=== PATIENT | male | born 1960 | race Caucasian/White ===

== ENCOUNTER 2016-11-18 23:50 | Emergency (ER) | payer OTHER ==
[~2016-11-18] VITALS: Ht 185.4 cm; Wt 161.4 kg
[~2016-11-18 23:50] MED LIST: ACID CONTROL150 MG PO; ADULT LOW DOSE81 M1 PO; AEROECLIPSE1 EACH MC; ALLEGRA30 MG PO; AMLODIPINE BESY10 MG PO; AMOX TR-K CLV1 EAC3 PO; ANUSOL-HC21 GM PR; AQUAPHOR OINTM105 GM TP; ASPIR 8181 M1 PO; ASPIR-LOW81 MG PO; ASPIRIN81 M2 PO; ATIVAN0.5 MG PO; ATORVASTATIN CA40 MG PO; AUGMENTIN875 MG PO; Ascorbic Acid,Ester- PO; BACTROBAN CREAM15 GM TP; BENTYL10 MG PO; BENTYL20 MG PO; CALAMINE LOTIO120 ML TP; CARDIZEM60 MG PO; CELEXA40 MG PO; CHLORASEPTIC177 ML MM; CITALOPRAM HBR40 M1 PO; DILAUDID2 MG PO; DILAUDID4 MG PO; DOCUSATE SODIU100 MG PO; DOXYCYCLINE HY100 MG PO; DULCOLAX5 MG PO; ELIQUIS5 MG PO; EX-LAX15 MG PO; EXCEDRIN MIGRA1 EAC3 PO; FLANDERS BUTTO113 GM TD; FLEXERIL10 MG PO; FLONASE16 G1 BOTH NARES; GAS-X80 MG PO; GEMFIBROZIL600 MG PO; GENTAMICIN40 MG/1 ML IV; GLIPIZIDE ER2.5 M1 PO; HUMALOG100 UNIT/2 SQ; HYDROCODON-ACE1 EAC7 PO; KEFLEX500 MG PO; LABETALOL HCL200 MG PO; LABETALOL HCL300 MG PO; LACTULOSE10 GM/151 PO; LANTUS 10100 UNITS/ SC; LANTUS 3 M100 UNITS/ SC; LANTUS 3 M100 UNITS1 SC; LANTUS 3 M100 UNITS1 SQ; LANTUS100 UNIT/1 SQ; LASIX40 MG PO; LASIX80 MG PO; LIDOCAINE20 MG/1 M5 PO; LIDODERM 5% P1 PATCH TD; LISINOPRIL40 MG PO; LO-DOSE ASPIRIN81 M1 PO; LOMOTIL TABLET1 EACH PO; LOPID600 MG PO; LORAZEPAM0.5 MG PO; LOTRISONE15 GM TP; LYRICA150 MG PO; LYRICA300 MG PO; MAALOX ADVANCE355 ML PO; MAGIC MOUTHWASH1 ML MM; MAGNESIUM CITR296 M1 PO; MAXALT10 MG PO; METAMUCIL FIBE3.4 GM PO; METOPROLOL SUCC25 MG PO; METOPROLOL TAR100 MG PO; MIRALAX17 GM PO; MIRALAX255 GM PO; MUPIROCIN22 GM TP; Mitrazol 2% Cream TP; NEXIUM40 MG PO; NORCO 5/3251 TABLET PO; NORTRIPTYLINE H10 MG PO; NORVASC10 MG PO; NOVOLOG 10100 UNITS/ SC; NOVOLOG PE100 UNITS/ SC; NOVOLOG100 UNIT/1 SC; NYAMYC60 GM TP; NYSTATIN100000 UN1 PO; ONDANSETRON HCL4 MG PO; OXYCODONE HCL30 MG PO; PAMELOR25 MG PO; PANTOPRAZOLE SO40 MG PO; PEN-VEE K,VEET500 MG PO; PEPCID20 MG PO; PREDNISONE50 MG PO; PRILOSEC20 MG PO; PROAIR HFA8.5 GM IH; PROMETHAZINE HC25 M1 PO; PROTONIX40 MG PO; PROVENTIL,2.5 MG/3 M IH; RANITIDINE HCL150 M1 PO; RANITIDINE HCL150 MG PO; REGLAN5 MG PO; RENA-VITE RX T1 EACH PO; RENAL CAPS SOFTG1 MG PO; RENVELA800 MG PO; ROBITUSSIN AC,T10 ML PO; ROBITUSSIN100 MG/5 M PO; ROXICODONE30 MG PO; SENOKOT S,PE1 TABLET PO; SENOKOT,SENN1 TABLET PO; SIMETHICONE125 M1 PO; SODIUM CHLORIDE IH; TESSALON200 MG PO; THERAGRAN1 TABLET PO; TOPAMAX100 MG PO; TOPAMAX200 MG PO; TOPIRAMATE200 MG PO; TORADOL10 MG PO; TRAMADOL HCL50 MG PO; TUMS X-STR300 MG PO; TYLENOL EXTRA500 MG PO; Tylenol Regular Stre PO; ULTRAM50 MG PO; VALIUM5 MG PO; VANCOMYCIN HCL1 GM IV; VENTOLIN HFA18 GM IH; VIBRAMYCIN100 MG PO; ZANTAC150 MG PO; ZANTAC300 MG PO; ZESTRIL,PRINIVIL5 MG PO; ZITHROMAX Z-PA250 MG PO; ZOFRAN ODT4 MG PO; ZOFRAN ODT8 MG PO; ZOFRAN4 MG PO; ZOFRAN8 MG PO; [UNRECOGNIZED DRUG - OTHER] PO; [UNRECOGNIZED DRUG - OTHER] TP
[2016-11-19] MEDS ORDERED: ZYRTEC10 M3 PO (01:38)
[2016-11-19] MEDS ORDERED: ROBITUSSIN AC,T10 ML PO (01:38)
[2016-11-19 01:51] VITALS: BP 150/73
== END 2016-11-19 01:54 | disposition home or self-care (01) ==
LOC: EME 23:50
DX: J06.9 Acute upper respiratory infection, unspecified (principal); J40 Bronchitis, not specified as acute or chronic; N18.6 End stage renal disease; I25.2 Old myocardial infarction; Z99.81 Dependence on supplemental oxygen; Z87.442 Personal history of urinary calculi; Z99.2 Dependence on renal dialysis; Z91.041 Radiographic dye allergy status; Z88.1 Allergy status to other antibiotic agents; Z87.891 Personal history of nicotine dependence
CPT/HCPCS: 71010; 99281; 99283

== ENCOUNTER 2016-11-22 02:42 | Emergency (ER) | payer OTHER ==
[~2016-11-22] VITALS: Ht 185.4 cm; Wt 162.8 kg
[~2016-11-22 02:42] MED LIST changes: +ZYRTEC10 M3 PO
[2016-11-22 04:08] LABS: HEMATOCRIT 32.1 % (38.0-50.0); MCV 82.9 FL (86-99); PLATELET COUNT 199 K/uL (156-360); RBC DIS.WIDTH-CV 17.2 % (11.8-14.6); RBC DIS.WIDTH-SD 49.8 % (39-53); RED BLOOD COUNT 3.87 M/uL (4.00-5.50); WHITE BLOOD COUNT 8.8 K/uL (4.1-10.2)
[2016-11-22 04:19] LABS: CHLORIDE 95 mEq/L (99-109); POTASSIUM 4.7 mEq/L (3.7-5.4); SODIUM 132 mEq/L (136-147)
[2016-11-22 04:21] LABS: GLUCOSE 340 mg/dL (70-99)
[2016-11-22 04:22] LABS: ANION GAP 17 MEQ/L (2-14)
[2016-11-22 04:23] LABS: TOTAL BILIRUBIN 0.4 mg/dL (0.0-1.0)
[2016-11-22 04:25] LABS: ALKALINE PHOSPHATASE 123 IU/L (3-129); GFR ESTIMATE (CALCULATED) 11 mL/min/
[2016-11-22 04:26] LABS: DIRECT BILIRUBIN 0.1 mg/dL (0.0-0.3); UREA NITROGEN (BUN) 66 mg/dL (9-23)
[2016-11-22 05:40] VITALS: BP 150/65
== END 2016-11-22 05:57 | disposition home or self-care (01) ==
LOC: EME 02:42
PROVIDERS: Emergency Medicine
DX: E86.0 Dehydration (principal); E11.65 Type 2 diabetes mellitus with hyperglycemia; E11.29 Type 2 diabetes mellitus with other diabetic kidney complication; I10 Essential (primary) hypertension; J43.9 Emphysema, unspecified; J44.9 Chronic obstructive pulmonary disease, unspecified; J45.909 Unspecified asthma, uncomplicated; Z99.2 Dependence on renal dialysis; Z79.4 Long term (current) use of insulin; Z79.82 Long term (current) use of aspirin; Z87.891 Personal history of nicotine dependence; Z91.041 Radiographic dye allergy status; Z88.8 Allergy status to other drugs, medicaments and biological substances; Z88.4 Allergy status to anesthetic agent
CPT/HCPCS: 71010; 80048; 80076; 83605; 85027; 99281; 99284; J7040

== ENCOUNTER 2016-12-06 10:43 | Emergency (ER) | payer OTHER ==
[~2016-12-06] VITALS: Ht 185.4 cm; Wt 155.0 kg
[2016-12-06] MEDS ORDERED: LABETALOL HCL200 MG PO (11:43)
[2016-12-06 13:31] VITALS: BP 195/97
== END 2016-12-06 13:32 | disposition home or self-care (01) ==
LOC: EME 10:43
DX: R11.0 Nausea (principal); R10.10 Upper abdominal pain, unspecified; E11.9 Type 2 diabetes mellitus without complications; I10 Essential (primary) hypertension; I25.2 Old myocardial infarction; K21.9 Gastro-esophageal reflux disease without esophagitis; Z87.442 Personal history of urinary calculi; Z89.612 Acquired absence of left leg above knee; Z89.611 Acquired absence of right leg above knee; Z99.81 Dependence on supplemental oxygen; Z91.041 Radiographic dye allergy status; Z88.8 Allergy status to other drugs, medicaments and biological substances; Z87.891 Personal history of nicotine dependence
CPT/HCPCS: 80053; 81003; 85027; 99281; 99284; J2405; J2550

== ENCOUNTER 2016-12-24 21:16 | Emergency (ER) | payer OTHER ==
[~2016-12-24] VITALS: Ht 154.9 cm; Wt 159.0 kg
[2016-12-24 22:42] LABS: CARBOXY HGB 1.2 % (0-5); METHEMOGLOBIN 1.5 % (0-1.5); PCO2 52 mm Hg (35-45)
[2016-12-24 22:49] LABS: BICARBONATE 27.4 mEq/L (22-26); COMMENTS - BLOOD GASES C+A+ VBG; DEVICE NC; O2 FLOW 4 L/MIN; PO2 39 mm Hg (80-100); SITE RR; pH 7.33 (7.35-7.45)
[2016-12-24 22:49] LABS: CHLORIDE 99 mEq/L (99-109); POTASSIUM 3.2 mEq/L (3.7-5.4); SODIUM 137 mEq/L (136-147)
[2016-12-24 22:51] LABS: GLUCOSE 161 mg/dL (70-99)
[2016-12-24 22:52] LABS: ANION GAP 15 MEQ/L (2-14)
[2016-12-24 22:53] LABS: TOTAL BILIRUBIN 0.3 mg/dL (0.0-1.0)
[2016-12-24 22:54] LABS: ALKALINE PHOSPHATASE 98 IU/L (3-129)
[2016-12-24 22:55] LABS: GFR ESTIMATE (CALCULATED) 13 mL/min/
[2016-12-24 22:56] LABS: UREA NITROGEN (BUN) 26 mg/dL (9-23)
[2016-12-24 22:57] LABS: HEMATOCRIT 29.4 % (38.0-50.0); MCH 23.8 PG (29.0-34.0); MCHC 28.9 G/DL (30.0-36.0); MCV 82.4 FL (86-99); MEAN PLAT.VOLUME 8.5 uM^3 (9.0-12.4); PLATELET COUNT 260 K/uL (156-360); RBC DIS.WIDTH-CV 17.1 % (11.8-14.6); RBC DIS.WIDTH-SD 49.3 % (39-53); RED BLOOD COUNT 3.57 M/uL (4.00-5.50); WHITE BLOOD COUNT 8.1 K/uL (4.1-10.2)
[2016-12-24 22:58] LABS: LIPASE 20 U/L (1.0-51.0)
[2016-12-24 23:00] LABS: TROP-I INTERPRETATION NEGATIVE; TROPONIN-I 0.02 ng/mL (0.0-0.30)
[2016-12-24 23:08] LABS: INTER. NORMALIZED RATIO 1.1; PROTHROMBIN TIME 11.2 (9.2-11.2); PTT 34.3 (25-32)
[2016-12-25] MEDS ORDERED: ATIVAN0.5 MG PO (01:20)
[2016-12-25 01:50] VITALS: BP 103/60
== END 2016-12-25 02:06 | disposition home or self-care (01) ==
LOC: EME 21:16
PROVIDERS: Emergency Medicine
DX: F41.1 Generalized anxiety disorder (principal); R06.00 Dyspnea, unspecified; E11.22 Type 2 diabetes mellitus with diabetic chronic kidney disease; I12.0 Hypertensive chronic kidney disease with stage 5 chronic kidney disease or end stage renal disease; N18.6 End stage renal disease; Z99.2 Dependence on renal dialysis; Z79.4 Long term (current) use of insulin; D64.9 Anemia, unspecified; J44.9 Chronic obstructive pulmonary disease, unspecified; J45.909 Unspecified asthma, uncomplicated; G89.29 Other chronic pain; Z79.891 Long term (current) use of opiate analgesic; Z79.82 Long term (current) use of aspirin; Z99.81 Dependence on supplemental oxygen; Z89.611 Acquired absence of right leg above knee; Z89.612 Acquired absence of left leg above knee; Z87.891 Personal history of nicotine dependence
CPT/HCPCS: 36600; 71010; 80053; 81003; 82803; 83690; 83880; 84484; 85027; 85610; 85730; 93005; 94640; 94799; 99281; 99285; J2060

== ENCOUNTER 2016-12-29 21:49 | Emergency (ER) | payer OTHER ==
[~2016-12-29] VITALS: Ht 185.4 cm; Wt 159.0 kg
[2016-12-30 00:54] LABS: HEMATOCRIT 29.7 % (38.0-50.0); MCH 23.8 PG (29.0-34.0); MCV 82.3 FL (86-99); MEAN PLAT.VOLUME 8.3 uM^3 (9.0-12.4); PLATELET COUNT 257 K/uL (156-360); RBC DIS.WIDTH-CV 17.4 % (11.8-14.6); RBC DIS.WIDTH-SD 50.6 % (39-53); RED BLOOD COUNT 3.61 M/uL (4.00-5.50); WHITE BLOOD COUNT 9.3 K/uL (4.1-10.2)
[2016-12-30 00:56] LABS: EOSINOPHIL (%) 5.2 % (0-5); EOSINOPHIL COUNT 0.5 K/uL (0-0.3); IMMATURE GRANULOCYTE (%) 0.6 % (0.0-0.7); IMMATURE GRANULOCYTE COUNT 0.6 K/uL; MONOCYTE (%) 9.6 % (3-12); MONOCYTE COUNT 0.9 K/uL (0-0.8); NEUTROPHIL (%) 73.7 % (45-76); NEUTROPHIL COUNT 6.9 K/uL (1.8-6.4)
[2016-12-30 01:02] LABS: CHLORIDE 98 mEq/L (99-109); POTASSIUM 3.6 mEq/L (3.7-5.4); SODIUM 136 mEq/L (136-147)
[2016-12-30 01:04] LABS: GLUCOSE 173 mg/dL (70-99)
[2016-12-30 01:05] LABS: ANION GAP 16 MEQ/L (2-14)
[2016-12-30 01:08] LABS: GFR ESTIMATE (CALCULATED) 10 mL/min/
[2016-12-30 01:09] LABS: UREA NITROGEN (BUN) 35 mg/dL (9-23)
[2016-12-30 03:22] VITALS: BP 91/58
== END 2016-12-30 03:23 | disposition home or self-care (01) ==
LOC: EME 21:49
PROVIDERS: Emergency Medicine
DX: L89.313 Pressure ulcer of right buttock, stage 3 (principal); L89.323 Pressure ulcer of left buttock, stage 3; I13.0 Hypertensive heart and chronic kidney disease with heart failure and stage 1 through stage 4 chronic kidney disease, or unspecified chronic kidney disease; I50.9 Heart failure, unspecified; E11.22 Type 2 diabetes mellitus with diabetic chronic kidney disease; N18.9 Chronic kidney disease, unspecified; D64.9 Anemia, unspecified; J44.9 Chronic obstructive pulmonary disease, unspecified; F31.9 Bipolar disorder, unspecified; Z89.611 Acquired absence of right leg above knee; Z89.612 Acquired absence of left leg above knee
CPT/HCPCS: 74177; 80048; 83605; 85025; 87040; 99281; 99285; J1170; J7030; J7050

== ENCOUNTER 2016-12-30 20:56 | Emergency (ER) | payer OTHER ==
[~2016-12-30] VITALS: Ht 185.4 cm; Wt 143.1 kg
[2016-12-30 22:03] VITALS: BP 127/58
== END 2016-12-30 22:08 | disposition home or self-care (01) ==
LOC: EME 20:56
DX: L89.319 Pressure ulcer of right buttock, unspecified stage (principal); L89.329 Pressure ulcer of left buttock, unspecified stage; G89.29 Other chronic pain; J44.9 Chronic obstructive pulmonary disease, unspecified; I10 Essential (primary) hypertension; I25.10 Atherosclerotic heart disease of native coronary artery without angina pectoris; J45.909 Unspecified asthma, uncomplicated; E11.9 Type 2 diabetes mellitus without complications; I25.2 Old myocardial infarction; Z87.442 Personal history of urinary calculi; K21.9 Gastro-esophageal reflux disease without esophagitis; R56.9 Unspecified convulsions; Z79.4 Long term (current) use of insulin; Z79.82 Long term (current) use of aspirin; Z87.891 Personal history of nicotine dependence
CPT/HCPCS: 99281; 99283

== ENCOUNTER 2017-01-05 01:04 | Emergency (ER) | payer OTHER ==
[~2017-01-05] VITALS: Ht 182.9 cm; Wt 164.4 kg
[2017-01-05 02:10] LABS: HEMATOCRIT 27.7 % (38.0-50.0); MCH 23.6 PG (29.0-34.0); MCHC 28.9 G/DL (30.0-36.0); MCV 81.7 FL (86-99); MEAN PLAT.VOLUME 8.5 uM^3 (9.0-12.4); PLATELET COUNT 215 K/uL (156-360); RBC DIS.WIDTH-CV 17.3 % (11.8-14.6); RBC DIS.WIDTH-SD 50.1 % (39-53); RED BLOOD COUNT 3.39 M/uL (4.00-5.50); WHITE BLOOD COUNT 8.9 K/uL (4.1-10.2)
[2017-01-05 02:22] LABS: CHLORIDE 97 mEq/L (99-109); POTASSIUM 3.2 mEq/L (3.7-5.4); SODIUM 135 mEq/L (136-147)
[2017-01-05 02:23] LABS: GLUCOSE 288 mg/dL (70-99)
[2017-01-05 02:25] LABS: ANION GAP 15 MEQ/L (2-14)
[2017-01-05 02:27] LABS: GFR ESTIMATE (CALCULATED) 13 mL/min/
[2017-01-05 02:28] LABS: UREA NITROGEN (BUN) 30 mg/dL (9-23)
[2017-01-05 02:31] LABS: TROP-I INTERPRETATION NEGATIVE; TROPONIN-I 0.02 ng/mL (0.0-0.30)
[2017-01-05 03:47] VITALS: BP 115/64
== END 2017-01-05 03:48 | disposition home or self-care (01) ==
LOC: EME 01:04
PROVIDERS: Emergency Medicine
DX: J44.1 Chronic obstructive pulmonary disease with (acute) exacerbation (principal); I12.9 Hypertensive chronic kidney disease with stage 1 through stage 4 chronic kidney disease, or unspecified chronic kidney disease; N18.9 Chronic kidney disease, unspecified; Z99.2 Dependence on renal dialysis; J45.909 Unspecified asthma, uncomplicated; F31.9 Bipolar disorder, unspecified; G89.29 Other chronic pain; E11.9 Type 2 diabetes mellitus without complications; I25.2 Old myocardial infarction; Z87.442 Personal history of urinary calculi; K21.9 Gastro-esophageal reflux disease without esophagitis; Z79.4 Long term (current) use of insulin; Z79.82 Long term (current) use of aspirin; Z87.891 Personal history of nicotine dependence
CPT/HCPCS: 71010; 80048; 83880; 84484; 85027; 93005; 94640; 99281; 99284

== ENCOUNTER 2017-01-11 01:55 | Emergency (ER) | payer OTHER ==
[~2017-01-11] VITALS: Ht 185.4 cm; Wt 85.0 kg
[2017-01-11 06:29] VITALS: BP 142/66
== END 2017-01-11 06:31 | disposition home or self-care (01) ==
LOC: EME 01:55
DX: S72.401A Unspecified fracture of lower end of right femur, initial encounter for closed fracture (principal); V00.818A Other accident with wheelchair (powered), initial encounter; Z89.511 Acquired absence of right leg below knee; Z89.512 Acquired absence of left leg below knee; E11.9 Type 2 diabetes mellitus without complications; J44.9 Chronic obstructive pulmonary disease, unspecified; I10 Essential (primary) hypertension; I25.2 Old myocardial infarction; K21.9 Gastro-esophageal reflux disease without esophagitis; R56.9 Unspecified convulsions; Z99.2 Dependence on renal dialysis; G89.29 Other chronic pain; Z79.891 Long term (current) use of opiate analgesic; Z79.4 Long term (current) use of insulin; Z79.82 Long term (current) use of aspirin; Z87.891 Personal history of nicotine dependence; Z99.3 Dependence on wheelchair
CPT/HCPCS: 73502; 73552; 99281; 99284

== ENCOUNTER 2017-01-15 21:19 | Emergency (ER) | payer OTHER ==
[~2017-01-15] VITALS: Ht 185.4 cm; Wt 164.0 kg
[2017-01-15 22:05] LABS: CHLORIDE 96 mEq/L (99-109); POTASSIUM 3.2 mEq/L (3.7-5.4); SODIUM 134 mEq/L (136-147)
[2017-01-15 22:06] LABS: MCH 23.3 PG (29.0-34.0); MCHC 28.1 G/DL (30.0-36.0); MCV 82.9 FL (86-99); MEAN PLAT.VOLUME 10.4 uM^3 (9.0-12.4); PLATELET COUNT 220 K/uL (156-360); RBC DIS.WIDTH-CV 16.8 % (11.8-14.6); RED BLOOD COUNT 3.86 M/uL (4.00-5.50); WHITE BLOOD COUNT 8.7 K/uL (4.1-10.2)
[2017-01-15 22:07] LABS: GLUCOSE 293 mg/dL (70-99)
[2017-01-15 22:09] LABS: ANION GAP 12 MEQ/L (2-14)
[2017-01-15 22:11] LABS: GFR ESTIMATE (CALCULATED) 17 mL/min/
[2017-01-15 22:12] LABS: UREA NITROGEN (BUN) 19 mg/dL (9-23)
[2017-01-15 23:58] LABS: MAGNESIUM 1.9 mg/dL (1.3-2.7)
[2017-01-16 00:01] LABS: TOTAL BILIRUBIN 0.3 mg/dL (0.0-1.0)
[2017-01-16 00:02] LABS: ALKALINE PHOSPHATASE 108 IU/L (3-129)
[2017-01-16 00:05] LABS: DIRECT BILIRUBIN 0.1 mg/dL (0.0-0.3)
[2017-01-16 00:21] LABS: TROP-I INTERPRETATION NEGATIVE; TROPONIN-I 0.03 ng/mL (0.0-0.30)
[2017-01-16] MEDS ORDERED: ATARAX,VISTARIL50 MG PO (01:25)
[2017-01-16 01:39] VITALS: BP 133/75
== END 2017-01-16 01:40 | disposition home or self-care (01) ==
LOC: EME 21:19
PROVIDERS: Emergency Medicine
DX: E86.0 Dehydration (principal); Z99.2 Dependence on renal dialysis; R11.0 Nausea; L29.9 Pruritus, unspecified; E11.22 Type 2 diabetes mellitus with diabetic chronic kidney disease; I12.0 Hypertensive chronic kidney disease with stage 5 chronic kidney disease or end stage renal disease; N18.6 End stage renal disease; Z79.4 Long term (current) use of insulin; J44.9 Chronic obstructive pulmonary disease, unspecified; J45.909 Unspecified asthma, uncomplicated; G89.29 Other chronic pain; Z79.891 Long term (current) use of opiate analgesic; Z79.82 Long term (current) use of aspirin; Z89.511 Acquired absence of right leg below knee; Z89.512 Acquired absence of left leg below knee; Z87.891 Personal history of nicotine dependence
CPT/HCPCS: 71010; 80048; 80076; 83735; 84100; 84484; 85027; 93005; 99281; 99284; J2550

== ENCOUNTER 2017-01-19 00:23 | Emergency (ER) | payer OTHER ==
[~2017-01-19] VITALS: Ht 185.4 cm; Wt 164.0 kg
[~2017-01-19 00:23] MED LIST changes: +ATARAX,VISTARIL50 MG PO
[2017-01-19 01:38] LABS: CHLORIDE 99 mEq/L (99-109); SODIUM 137 mEq/L (136-147)
[2017-01-19 01:40] LABS: GLUCOSE 347 mg/dL (70-99)
[2017-01-19 01:41] LABS: ANION GAP 15 MEQ/L (2-14)
[2017-01-19 01:42] LABS: TROP-I INTERPRETATION NEGATIVE; TROPONIN-I 0.03 ng/mL (0.0-0.30)
[2017-01-19 01:44] LABS: UREA NITROGEN (BUN) 27 mg/dL (9-23)
[2017-01-19 01:51] LABS: GFR ESTIMATE (CALCULATED) 13 mL/min/
[2017-01-19 02:11] LABS: MCH 23.2 PG (29.0-34.0); MCHC 28.3 G/DL (30.0-36.0); MCV 81.9 FL (86-99); MEAN PLAT.VOLUME 8.8 uM^3 (9.0-12.4); PLATELET COUNT 248 K/uL (156-360); RBC DIS.WIDTH-CV 16.3 % (11.8-14.6); RBC DIS.WIDTH-SD 48.9 % (39-53); RED BLOOD COUNT 3.54 M/uL (4.00-5.50); WHITE BLOOD COUNT 8.9 K/uL (4.1-10.2)
[2017-01-19 02:29] VITALS: BP 107/94
== END 2017-01-19 02:30 | disposition home or self-care (01) ==
LOC: EME 00:23
PROVIDERS: Emergency Medicine
DX: G47.30 Sleep apnea, unspecified (principal); J44.9 Chronic obstructive pulmonary disease, unspecified; J45.909 Unspecified asthma, uncomplicated; E11.22 Type 2 diabetes mellitus with diabetic chronic kidney disease; I12.0 Hypertensive chronic kidney disease with stage 5 chronic kidney disease or end stage renal disease; N18.6 End stage renal disease; Z99.2 Dependence on renal dialysis; Z79.4 Long term (current) use of insulin; Z89.611 Acquired absence of right leg above knee; Z89.612 Acquired absence of left leg above knee; Z79.82 Long term (current) use of aspirin; Z87.891 Personal history of nicotine dependence
CPT/HCPCS: 71020; 80048; 83880; 84484; 85027; 99281; 99284

== ENCOUNTER 2017-01-23 07:01 | Emergency (ER) | payer OTHER ==
[~2017-01-23] VITALS: Ht 185.4 cm; Wt 164.0 kg
[2017-01-23 08:47] VITALS: BP 160/63
== END 2017-01-23 08:55 | disposition home or self-care (01) ==
LOC: EME 07:01
DX: L02.31 Cutaneous abscess of buttock (principal); Z48.01 Encounter for change or removal of surgical wound dressing; L89.152 Pressure ulcer of sacral region, stage 2; E11.22 Type 2 diabetes mellitus with diabetic chronic kidney disease; I12.0 Hypertensive chronic kidney disease with stage 5 chronic kidney disease or end stage renal disease; N18.6 End stage renal disease; Z99.2 Dependence on renal dialysis; Z79.4 Long term (current) use of insulin; J44.9 Chronic obstructive pulmonary disease, unspecified; J45.909 Unspecified asthma, uncomplicated; Z89.511 Acquired absence of right leg below knee; Z89.512 Acquired absence of left leg below knee; Z79.82 Long term (current) use of aspirin; Z87.891 Personal history of nicotine dependence
CPT/HCPCS: 99281; 99285

== ENCOUNTER 2017-01-24 21:42 | Emergency (ER) | payer OTHER ==
[~2017-01-24] VITALS: Ht 185.4 cm; Wt 165.0 kg
[2017-01-25 00:10] VITALS: BP 159/64
== END 2017-01-25 00:50 | disposition home or self-care (01) ==
LOC: EME 21:42
DX: S70.12XA Contusion of left thigh, initial encounter (principal); S72.402A Unspecified fracture of lower end of left femur, initial encounter for closed fracture; E11.9 Type 2 diabetes mellitus without complications; Z89.511 Acquired absence of right leg below knee; Z89.512 Acquired absence of left leg below knee; W04.XXXA Fall while being carried or supported by other persons, initial encounter; I10 Essential (primary) hypertension; I25.2 Old myocardial infarction
CPT/HCPCS: 73552; 99281; 99283; J3010

== ENCOUNTER 2017-01-25 05:56 | Emergency (ER) | payer OTHER ==
[~2017-01-25] VITALS: Ht 185.4 cm; Wt 165.0 kg
[2017-01-25 08:18] VITALS: BP 194/71
== END 2017-01-25 08:23 | disposition home or self-care (01) ==
LOC: EME 05:56
DX: G89.21 Chronic pain due to trauma (principal); M79.605 Pain in left leg; M84.452A Pathological fracture, left femur, initial encounter for fracture; W04.XXXA Fall while being carried or supported by other persons, initial encounter; I12.0 Hypertensive chronic kidney disease with stage 5 chronic kidney disease or end stage renal disease; N18.6 End stage renal disease; E11.22 Type 2 diabetes mellitus with diabetic chronic kidney disease; Z99.2 Dependence on renal dialysis; J44.9 Chronic obstructive pulmonary disease, unspecified; J45.909 Unspecified asthma, uncomplicated; I50.9 Heart failure, unspecified; I25.2 Old myocardial infarction; K21.9 Gastro-esophageal reflux disease without esophagitis; Z89.611 Acquired absence of right leg above knee; Z89.612 Acquired absence of left leg above knee; Z79.4 Long term (current) use of insulin; Z87.891 Personal history of nicotine dependence
CPT/HCPCS: 99281; 99284; J3010

== ENCOUNTER 2017-01-25 08:27 | Day surgery (SDC) | payer OTHER ==
[~2017-01-25] VITALS: Ht 185.4 cm; Wt 170.0 kg
[2017-01-25 10:16] LABS: POINT-OF-CARE METER ID UU13113696
[2017-01-25 12:21] VITALS: BP 149/65
[2017-01-25 12:30] LABS: ANION GAP 15 MEQ/L (2-14); CHLORIDE 97 MEQ/L (99-109); GLUCOSE 341 mg/dL (70-99); SAMPLE HEMOLYSIS CHECK 0; SAMPLE ICTERIC CHECK 0; SAMPLE LIPEMIA CHECK 0; SODIUM 134 MEQ/L (136-147)
[2017-01-25 12:35] LABS: GFR ESTIMATE (CALCULATED) 8 mL/min/; POTASSIUM 6.1 MEQ/L (3.7-5.4); UREA NITROGEN (BUN) 62 mg/dL (9-23)
[2017-01-25 14:14] VITALS: BP 173/138
[2017-01-25 14:47] VITALS: BP 170/100
== END 2017-01-25 14:48 | disposition home or self-care (01) ==
LOC: SDC 08:27 → CATH 08:27 → SDC 14:48
PROVIDERS: Surgery
DX: T82.858A Stenosis of other vascular prosthetic devices, implants and grafts, initial encounter (principal); Y83.2 Surgical operation with anastomosis, bypass or graft as the cause of abnormal reaction of the patient, or of later complication, without mention of misadventure at the time of the procedure; I12.0 Hypertensive chronic kidney disease with stage 5 chronic kidney disease or end stage renal disease; N18.6 End stage renal disease; Z99.2 Dependence on renal dialysis; E11.22 Type 2 diabetes mellitus with diabetic chronic kidney disease; Z79.4 Long term (current) use of insulin; F17.200 Nicotine dependence, unspecified, uncomplicated; E66.01 Morbid (severe) obesity due to excess calories; Z68.42 Body mass index [BMI] 45.0-49.9, adult; D63.1 Anemia in chronic kidney disease; K44.9 Diaphragmatic hernia without obstruction or gangrene; J44.9 Chronic obstructive pulmonary disease, unspecified; Z99.81 Dependence on supplemental oxygen; Z79.82 Long term (current) use of aspirin; Z86.73 Personal history of transient ischemic attack (TIA), and cerebral infarction without residual deficits; Z88.8 Allergy status to other drugs, medicaments and biological substances; Z99.3 Dependence on wheelchair
CPT/HCPCS: 80048; 82948; C1725; C1769; C1894; J1644

== ENCOUNTER 2017-01-27 04:45 | Emergency (ER) | payer OTHER ==
[~2017-01-27] VITALS: Ht 185.4 cm; Wt 121.4 kg
[2017-01-27 05:35] LABS: HEMATOCRIT 28.7 % (38.0-50.0); MCH 23.3 PG (29.0-34.0); MCHC 28.2 G/DL (30.0-36.0); MCV 82.5 FL (86-99); MEAN PLAT.VOLUME 8.9 uM^3 (9.0-12.4); PLATELET COUNT 239 K/uL (156-360); RBC DIS.WIDTH-CV 16.5 % (11.8-14.6); RBC DIS.WIDTH-SD 49.1 % (39-53); RED BLOOD COUNT 3.48 M/uL (4.00-5.50); WHITE BLOOD COUNT 7.7 K/uL (4.1-10.2)
[2017-01-27 05:39] LABS: CHLORIDE 98 mEq/L (99-109); POTASSIUM 5.7 mEq/L (3.7-5.4); SODIUM 137 mEq/L (136-147)
[2017-01-27 05:42] LABS: ANION GAP 18 MEQ/L (2-14)
[2017-01-27 05:45] LABS: GFR ESTIMATE (CALCULATED) 9 mL/min/; UREA NITROGEN (BUN) 51 mg/dL (9-23)
[2017-01-27 05:52] LABS: GLUCOSE 463 mg/dL (70-99)
[2017-01-27 07:48] VITALS: BP 189/77
== END 2017-01-27 07:46 | disposition home or self-care (01) ==
LOC: EME 04:45
DX: I12.0 Hypertensive chronic kidney disease with stage 5 chronic kidney disease or end stage renal disease (principal); N18.6 End stage renal disease; J44.9 Chronic obstructive pulmonary disease, unspecified; Z99.2 Dependence on renal dialysis; J45.909 Unspecified asthma, uncomplicated; G89.29 Other chronic pain; E11.9 Type 2 diabetes mellitus without complications; Z87.442 Personal history of urinary calculi; I25.2 Old myocardial infarction; K21.9 Gastro-esophageal reflux disease without esophagitis; R56.9 Unspecified convulsions; Z79.4 Long term (current) use of insulin; Z79.82 Long term (current) use of aspirin; Z87.891 Personal history of nicotine dependence
CPT/HCPCS: 71010; 80048; 85027; 99281; 99283

== ENCOUNTER 2017-01-28 00:47 | Emergency (ER) | payer OTHER ==
[~2017-01-28] VITALS: Ht 185.4 cm; Wt 118.2 kg
[2017-01-28 00:55] VITALS: BP 157/69
== END 2017-01-28 01:30 | disposition left against medical advice (07) ==
LOC: EME 00:47
DX: R06.02 Shortness of breath (principal); Z53.21 Procedure and treatment not carried out due to patient leaving prior to being seen by health care provider; R55 Syncope and collapse; I10 Essential (primary) hypertension; Z99.2 Dependence on renal dialysis; Z87.891 Personal history of nicotine dependence

== ENCOUNTER 2017-01-28 23:00 | Emergency (ER) | payer OTHER ==
[~2017-01-28] VITALS: Ht 185.4 cm; Wt 167.0 kg
[2017-01-28 23:21] VITALS: BP 106/91
== END 2017-01-29 01:38 | disposition left against medical advice (07) ==
LOC: EME 23:00
DX: R46.89 Other symptoms and signs involving appearance and behavior (principal); Z99.2 Dependence on renal dialysis; Z53.21 Procedure and treatment not carried out due to patient leaving prior to being seen by health care provider

== ENCOUNTER 2017-01-29 02:07 | Emergency (ER) | payer OTHER ==
[~2017-01-29] VITALS: Ht 185.4 cm; Wt 172.0 kg
[2017-01-29 03:54] LABS: EOSINOPHIL (%) 5.2 % (0-5); EOSINOPHIL COUNT 0.4 K/uL (0-0.3); HEMATOCRIT 27.1 % (38.0-50.0); IMMATURE GRANULOCYTE (%) 0.7 % (0.0-0.7); IMMATURE GRANULOCYTE COUNT 0.1 K/uL; INSTRUMENT ABS NEUTROPHIL CT 6.5 K/uL; LYMPHOCYTE COUNT 0.6 K/uL (1.0-2.8); MCH 23.2 PG (29.0-34.0); MCV 82.6 FL (86-99); MONOCYTE (%) 6.7 % (3-12); MONOCYTE COUNT 0.6 K/uL (0-0.8); NEUTROPHIL (%) 79.3 % (45-76); NEUTROPHIL COUNT 6.5 K/uL (1.8-6.4); PLATELET COUNT 227 K/uL (156-360); RBC DIS.WIDTH-CV 16.5 % (11.8-14.6); RED BLOOD COUNT 3.28 M/uL (4.00-5.50); WHITE BLOOD COUNT 8.2 K/uL (4.1-10.2)
[2017-01-29 04:03] LABS: CHLORIDE 97 mEq/L (99-109); SODIUM 134 mEq/L (136-147)
[2017-01-29 04:06] LABS: ANION GAP 13 MEQ/L (2-14)
[2017-01-29 04:08] LABS: GFR ESTIMATE (CALCULATED) 10 mL/min/
[2017-01-29 04:09] LABS: UREA NITROGEN (BUN) 49 mg/dL (9-23)
[2017-01-29 04:11] LABS: GLUCOSE 468 mg/dL (70-99)
[2017-01-29 04:12] LABS: POTASSIUM 6.4 mEq/L (3.7-5.4)
[2017-01-29 04:16] LABS: TROP-I INTERPRETATION NEGATIVE; TROPONIN-I 0.01 ng/mL (0.0-0.30)
[2017-01-29 14:59] VITALS: BP 155/73
== END 2017-01-29 15:01 | disposition left against medical advice (07) ==
LOC: EME 02:07
PROVIDERS: Emergency Medicine
PROC: 5A1D00Z (ICD-10-PCS; principal; 2017-01-29)
DX: R07.9 Chest pain, unspecified (principal); R06.00 Dyspnea, unspecified; I12.0 Hypertensive chronic kidney disease with stage 5 chronic kidney disease or end stage renal disease; N18.6 End stage renal disease; Z91.15 Patient's noncompliance with renal dialysis; Z99.2 Dependence on renal dialysis; E87.5 Hyperkalemia; J45.909 Unspecified asthma, uncomplicated; J44.9 Chronic obstructive pulmonary disease, unspecified; E11.9 Type 2 diabetes mellitus without complications; I25.2 Old myocardial infarction; G89.29 Other chronic pain; Z87.442 Personal history of urinary calculi; K21.9 Gastro-esophageal reflux disease without esophagitis; Z87.891 Personal history of nicotine dependence; Z79.4 Long term (current) use of insulin; Z79.82 Long term (current) use of aspirin
CPT/HCPCS: 71010; 80048; 84484; 85025; 93005; 99281; 99285; J0610; J2060; J7050

== ENCOUNTER 2017-01-31 14:04 | Emergency (ER) | payer OTHER ==
[~2017-01-31] VITALS: Ht 185.4 cm; Wt 165.0 kg
[2017-01-31 14:50] LABS: BASOPHIL COUNT 0.1 K/uL (0-0.1); EOSINOPHIL (%) 5.3 % (0-5); EOSINOPHIL COUNT 0.4 K/uL (0-0.3); HEMATOCRIT 28.9 % (38.0-50.0); IMMATURE GRANULOCYTE (%) 0.5 % (0.0-0.7); INSTRUMENT ABS NEUTROPHIL CT 6.6 K/uL; LYMPHOCYTE COUNT 0.6 K/uL (1.0-2.8); MCH 23.1 PG (29.0-34.0); MCHC 28.4 G/DL (30.0-36.0); MCV 81.4 FL (86-99); MEAN PLAT.VOLUME 8.8 uM^3 (9.0-12.4); MONOCYTE COUNT 0.6 K/uL (0-0.8); NEUTROPHIL (%) 79.7 % (45-76); NEUTROPHIL COUNT 6.6 K/uL (1.8-6.4); PLATELET COUNT 276 K/uL (156-360); RBC DIS.WIDTH-CV 16.3 % (11.8-14.6); RBC DIS.WIDTH-SD 48.9 % (39-53); RED BLOOD COUNT 3.55 M/uL (4.00-5.50); WHITE BLOOD COUNT 8.2 K/uL (4.1-10.2)
[2017-01-31 14:59] LABS: CHLORIDE 96 mEq/L (99-109); SODIUM 132 mEq/L (136-147)
[2017-01-31 15:01] LABS: GLUCOSE 379 mg/dL (70-99)
[2017-01-31 15:02] LABS: ANION GAP 15 MEQ/L (2-14)
[2017-01-31 15:03] LABS: TOTAL BILIRUBIN 0.3 mg/dL (0.0-1.0)
[2017-01-31 15:04] LABS: ALKALINE PHOSPHATASE 90 IU/L (3-129)
[2017-01-31 15:05] LABS: GFR ESTIMATE (CALCULATED) 11 mL/min/
[2017-01-31 15:06] LABS: UREA NITROGEN (BUN) 47 mg/dL (9-23)
[2017-01-31 15:08] LABS: POTASSIUM 7.1 mEq/L (3.7-5.4)
[2017-01-31 15:12] LABS: TROP-I INTERPRETATION NEGATIVE; TROPONIN-I 0.05 ng/mL (0.0-0.30)
[2017-01-31 15:25] LABS: CARBON DIOXIDE (BICARBONATE) 28.9 MEQ/L (20-31)
[2017-01-31 15:41] LABS: ANION GAP 20 MEQ/L (2-14); CHLORIDE 95 mEq/L (99-109); CREATININE 5.5 mg/dL (0.6-1.3); GLUCOSE 353 mg/dL (70-99); ISTAT DEVICE 369301; POTASSIUM > 6.0 mEq/L (3.7-5.4); SODIUM 134 mEq/L (136-147); UREA NITROGEN (BUN) 45 mg/dL (9-23)
[2017-01-31 15:50] LABS: POTASSIUM 6.7 mEq/L (3.7-5.4)
[2017-01-31 15:53] LABS: DEVICE NC; O2 FLOW 3 L/MIN; SITE RR
[2017-01-31 15:54] LABS: BICARBONATE 28.1 mEq/L (22-26); CARBOXY HGB 0.7 % (0-5); HEMOGLOBIN 7.6 (12.5-16.6); METHEMOGLOBIN 0.6 % (0-1.5); O2 SATURATION (CALCULATED) 75.6 % (95-99); PCO2 52 mm Hg (35-45); PO2 39 mm Hg (80-100); TOTAL RESP RATE 18 resp/min; pH 7.34 (7.35-7.45)
[2017-01-31 15:55] LABS: COMMENTS - BLOOD GASES A+C+ ? VENOUS
[2017-01-31 17:31] VITALS: BP 151/91
== END 2017-01-31 17:32 | disposition left against medical advice (07) ==
LOC: EME 14:04 → EXP 14:04
PROVIDERS: Emergency Medicine; Physician Assistant
DX: E87.5 Hyperkalemia (principal); J44.9 Chronic obstructive pulmonary disease, unspecified; G47.33 Obstructive sleep apnea (adult) (pediatric); E11.9 Type 2 diabetes mellitus without complications; Z79.4 Long term (current) use of insulin; I10 Essential (primary) hypertension; Z87.891 Personal history of nicotine dependence; Z87.442 Personal history of urinary calculi
CPT/HCPCS: 36600; 71010; 80047; 80053; 82803; 83605; 84484; 84999; 85025; 85379; 93005; 99281; 99284; J0610; J2930; J7050

== ENCOUNTER 2017-02-02 04:06 | Emergency (ER) | payer OTHER ==
[~2017-02-02] VITALS: Ht 185.4 cm; Wt 166.0 kg
[2017-02-02 05:33] LABS: HEMATOCRIT 29.8 % (38.0-50.0); MCH 23.4 PG (29.0-34.0); MCHC 28.5 G/DL (30.0-36.0); MCV 81.9 FL (86-99); MEAN PLAT.VOLUME 8.4 uM^3 (9.0-12.4); PLATELET COUNT 323 K/uL (156-360); RBC DIS.WIDTH-CV 16.4 % (11.8-14.6); RED BLOOD COUNT 3.64 M/uL (4.00-5.50); WHITE BLOOD COUNT 12.4 K/uL (4.1-10.2)
[2017-02-02 05:41] LABS: CHLORIDE 97 mEq/L (99-109); SODIUM 137 mEq/L (136-147)
[2017-02-02 05:42] LABS: MAGNESIUM 2.3 mg/dL (1.3-2.7)
[2017-02-02 05:44] LABS: GLUCOSE 271 mg/dL (70-99)
[2017-02-02 05:45] LABS: ANION GAP 15 MEQ/L (2-14)
[2017-02-02 05:46] LABS: TOTAL BILIRUBIN 0.3 mg/dL (0.0-1.0)
[2017-02-02 05:47] LABS: ALKALINE PHOSPHATASE 82 IU/L (3-129)
[2017-02-02 05:48] LABS: UREA NITROGEN (BUN) 45 mg/dL (9-23)
[2017-02-02 05:51] LABS: LIPASE 48 U/L (1.0-51.0); TROP-I INTERPRETATION NEGATIVE; TROPONIN-I 0.07 ng/mL (0.0-0.30)
[2017-02-02 06:04] LABS: GFR ESTIMATE (CALCULATED) 15 mL/min/; POTASSIUM 4.7 mEq/L (3.7-5.4)
[2017-02-02] MEDS ORDERED: SYMBICORT60 INHALAT IH (06:16)
[2017-02-02 06:33] VITALS: BP 120/57
== END 2017-02-02 06:34 | disposition home or self-care (01) ==
LOC: EME 04:06
PROVIDERS: Emergency Medicine
DX: I48.91 Unspecified atrial fibrillation (principal); I12.9 Hypertensive chronic kidney disease with stage 1 through stage 4 chronic kidney disease, or unspecified chronic kidney disease; N18.9 Chronic kidney disease, unspecified; D64.9 Anemia, unspecified; E11.65 Type 2 diabetes mellitus with hyperglycemia; Z79.82 Long term (current) use of aspirin; J45.909 Unspecified asthma, uncomplicated; I25.2 Old myocardial infarction; K21.9 Gastro-esophageal reflux disease without esophagitis; J44.9 Chronic obstructive pulmonary disease, unspecified; Z99.2 Dependence on renal dialysis; Z88.8 Allergy status to other drugs, medicaments and biological substances; Z91.041 Radiographic dye allergy status; Z88.1 Allergy status to other antibiotic agents; Z87.891 Personal history of nicotine dependence; Z99.81 Dependence on supplemental oxygen; Z89.511 Acquired absence of right leg below knee; Z89.512 Acquired absence of left leg below knee; Z90.2 Acquired absence of lung [part of]; Z79.4 Long term (current) use of insulin
CPT/HCPCS: 71010; 80053; 83690; 83735; 84484; 85027; 93005; 99281; 99283

== ENCOUNTER 2017-02-04 02:12 | Emergency (ER) | payer OTHER ==
[~2017-02-04] VITALS: Ht 185.4 cm; Wt 167.0 kg
[~2017-02-04 02:12] MED LIST changes: +SYMBICORT60 INHALAT IH
[2017-02-04] MEDS ORDERED: ATIVAN1 MG PO (03:13)
[2017-02-04 03:20] VITALS: BP 130/65
== END 2017-02-04 03:41 | disposition home or self-care (01) ==
LOC: EME 02:12
DX: I48.0 Paroxysmal atrial fibrillation (principal); F41.1 Generalized anxiety disorder; I12.9 Hypertensive chronic kidney disease with stage 1 through stage 4 chronic kidney disease, or unspecified chronic kidney disease; N18.9 Chronic kidney disease, unspecified; D64.9 Anemia, unspecified; E11.9 Type 2 diabetes mellitus without complications; Z79.82 Long term (current) use of aspirin; J45.909 Unspecified asthma, uncomplicated; I25.2 Old myocardial infarction; K21.9 Gastro-esophageal reflux disease without esophagitis; Z99.2 Dependence on renal dialysis; Z88.8 Allergy status to other drugs, medicaments and biological substances; Z91.041 Radiographic dye allergy status; Z88.1 Allergy status to other antibiotic agents; Z87.891 Personal history of nicotine dependence; Z99.81 Dependence on supplemental oxygen; Z89.511 Acquired absence of right leg below knee; Z89.512 Acquired absence of left leg below knee; Z90.2 Acquired absence of lung [part of]; Z79.01 Long term (current) use of anticoagulants; Z79.4 Long term (current) use of insulin; J44.9 Chronic obstructive pulmonary disease, unspecified; Z87.442 Personal history of urinary calculi
CPT/HCPCS: 93005; 99281; 99284

== ENCOUNTER 2017-02-08 18:35 | Emergency (ER) | payer OTHER ==
[~2017-02-08] VITALS: Ht 185.4 cm; Wt 74.5 kg
[~2017-02-08 18:35] MED LIST changes: +ATIVAN1 MG PO
[2017-02-08 19:16] VITALS: BP 141/65
[2017-02-09] MEDS ORDERED: PERCOCET 5/31 TABLET PO (22:37)
== END 2017-02-08 22:00 | disposition left against medical advice (07) ==
LOC: EME 18:35
DX: M79.609 Pain in unspecified limb (principal); Z53.21 Procedure and treatment not carried out due to patient leaving prior to being seen by health care provider; Z87.891 Personal history of nicotine dependence

== ENCOUNTER 2017-02-09 20:32 | Emergency (ER) | payer OTHER ==
[~2017-02-09] VITALS: Ht 185.4 cm; Wt 163.0 kg
[2017-02-09] MEDS ORDERED: PERCOCET 5/31 TABLET PO (22:37)
[2017-02-09 22:44] VITALS: BP 145/71
== END 2017-02-09 22:46 | disposition home or self-care (01) ==
LOC: EME 20:32 → EXP 20:32
DX: S43.402A Unspecified sprain of left shoulder joint, initial encounter (principal); S43.002A Unspecified subluxation of left shoulder joint, initial encounter; W17.89XA Other fall from one level to another, initial encounter; V00.818A Other accident with wheelchair (powered), initial encounter; Z89.611 Acquired absence of right leg above knee; Z89.612 Acquired absence of left leg above knee; E11.22 Type 2 diabetes mellitus with diabetic chronic kidney disease; I12.0 Hypertensive chronic kidney disease with stage 5 chronic kidney disease or end stage renal disease; N18.6 End stage renal disease; Z99.2 Dependence on renal dialysis; Z79.4 Long term (current) use of insulin; Z79.82 Long term (current) use of aspirin; J44.9 Chronic obstructive pulmonary disease, unspecified; J45.909 Unspecified asthma, uncomplicated; Z87.891 Personal history of nicotine dependence
CPT/HCPCS: 73030; 99281; 99283

== ENCOUNTER 2017-02-12 08:16 | Emergency (ER) | payer OTHER ==
[~2017-02-12] VITALS: Ht 177.8 cm; Wt 164.0 kg
[~2017-02-12 08:16] MED LIST changes: +PERCOCET 5/31 TABLET PO
[2017-02-12 09:14] LABS: HEMATOCRIT 33.8 % (38.0-50.0); MCH 23.9 PG (29.0-34.0); MCHC 28.1 G/DL (30.0-36.0); MCV 84.9 FL (86-99); MEAN PLAT.VOLUME 8.5 uM^3 (9.0-12.4); PLATELET COUNT 236 K/uL (156-360); RBC DIS.WIDTH-CV 17.3 % (11.8-14.6); RBC DIS.WIDTH-SD 53.7 % (39-53); RED BLOOD COUNT 3.98 M/uL (4.00-5.50); WHITE BLOOD COUNT 8.7 K/uL (4.1-10.2)
[2017-02-12 09:22] LABS: CHLORIDE 100 mEq/L (99-109); POTASSIUM 4.6 mEq/L (3.7-5.4); SODIUM 137 mEq/L (136-147)
[2017-02-12 09:24] LABS: GLUCOSE 297 mg/dL (70-99)
[2017-02-12 09:25] LABS: ANION GAP 16 MEQ/L (2-14)
[2017-02-12 09:27] LABS: GFR ESTIMATE (CALCULATED) 12 mL/min/
[2017-02-12 09:28] LABS: UREA NITROGEN (BUN) 29 mg/dL (9-23)
[2017-02-12 09:36] LABS: TROP-I INTERPRETATION NEGATIVE; TROPONIN-I 0.04 ng/mL (0.0-0.30)
[2017-02-12 10:40] VITALS: BP 124/78
== END 2017-02-12 11:03 | disposition home or self-care (01) ==
LOC: EME 08:16
PROVIDERS: Physician Assistant Medical
DX: J06.9 Acute upper respiratory infection, unspecified (principal); R00.0 Tachycardia, unspecified; J44.9 Chronic obstructive pulmonary disease, unspecified; J45.909 Unspecified asthma, uncomplicated; E11.22 Type 2 diabetes mellitus with diabetic chronic kidney disease; I12.0 Hypertensive chronic kidney disease with stage 5 chronic kidney disease or end stage renal disease; N18.6 End stage renal disease; Z99.2 Dependence on renal dialysis; Z79.4 Long term (current) use of insulin; G89.29 Other chronic pain; Z79.891 Long term (current) use of opiate analgesic; Z89.611 Acquired absence of right leg above knee; Z89.612 Acquired absence of left leg above knee; Z79.82 Long term (current) use of aspirin; Z87.891 Personal history of nicotine dependence; Z99.3 Dependence on wheelchair
CPT/HCPCS: 71010; 80048; 84484; 85027; 93005; 94640; 99281; 99284

== ENCOUNTER 2017-02-15 21:38 | Emergency (ER) | payer OTHER ==
[~2017-02-15] VITALS: Ht 185.4 cm; Wt 165.0 kg
[2017-02-15 21:56] VITALS: BP 122/83
== END 2017-02-15 23:46 | disposition left against medical advice (07) ==
LOC: EME 21:38
DX: R06.02 Shortness of breath (principal); Z53.21 Procedure and treatment not carried out due to patient leaving prior to being seen by health care provider; R09.89 Other specified symptoms and signs involving the circulatory and respiratory systems; J44.9 Chronic obstructive pulmonary disease, unspecified; J45.909 Unspecified asthma, uncomplicated; I10 Essential (primary) hypertension; Z87.891 Personal history of nicotine dependence
CPT/HCPCS: 71020

== ENCOUNTER 2017-02-24 02:27 | Emergency (ER) | payer OTHER ==
[~2017-02-24] VITALS: Ht 185.4 cm; Wt 155.0 kg
[2017-02-24 02:59] LABS: MCH 24.5 PG (29.0-34.0); MCHC 28.7 G/DL (30.0-36.0); MCV 85.6 FL (86-99); MEAN PLAT.VOLUME 8.5 uM^3 (9.0-12.4); PLATELET COUNT 240 K/uL (156-360); RBC DIS.WIDTH-CV 18.5 % (11.8-14.6); RBC DIS.WIDTH-SD 56.6 % (39-53); RED BLOOD COUNT 4.44 M/uL (4.00-5.50); WHITE BLOOD COUNT 6.7 K/uL (4.1-10.2)
[2017-02-24 03:13] LABS: CHLORIDE 97 mEq/L (99-109); POTASSIUM 3.9 mEq/L (3.7-5.4); SODIUM 134 mEq/L (136-147)
[2017-02-24 03:15] LABS: GLUCOSE 251 mg/dL (70-99)
[2017-02-24 03:16] LABS: ANION GAP 15 MEQ/L (2-14)
[2017-02-24 03:17] LABS: TOTAL BILIRUBIN 0.3 mg/dL (0.0-1.0)
[2017-02-24 03:18] LABS: ALKALINE PHOSPHATASE 118 IU/L (3-129)
[2017-02-24 03:19] LABS: GFR ESTIMATE (CALCULATED) 16 mL/min/
[2017-02-24 03:20] LABS: UREA NITROGEN (BUN) 23 mg/dL (9-23)
[2017-02-24 04:13] LABS: LIPASE 26 U/L (1.0-51.0)
[2017-02-24 05:14] VITALS: BP 151/78
== END 2017-02-24 05:15 | disposition home or self-care (01) ==
LOC: EME 02:27
DX: R10.84 Generalized abdominal pain (principal); R11.0 Nausea; E11.22 Type 2 diabetes mellitus with diabetic chronic kidney disease; I12.0 Hypertensive chronic kidney disease with stage 5 chronic kidney disease or end stage renal disease; N18.6 End stage renal disease; Z99.2 Dependence on renal dialysis; Z87.891 Personal history of nicotine dependence; Z79.4 Long term (current) use of insulin; J44.9 Chronic obstructive pulmonary disease, unspecified; J45.909 Unspecified asthma, uncomplicated; Z90.49 Acquired absence of other specified parts of digestive tract; Z89.612 Acquired absence of left leg above knee; Z89.611 Acquired absence of right leg above knee; Z87.442 Personal history of urinary calculi; Z79.82 Long term (current) use of aspirin
CPT/HCPCS: 74176; 80053; 81003; 83690; 85027; 99281; 99284; J2550

== ENCOUNTER 2017-03-03 01:10 | Emergency (ER) | payer OTHER ==
[~2017-03-03] VITALS: Ht 185.4 cm; Wt 155.0 kg
[2017-03-03 02:02] LABS: HEMATOCRIT 37.6 % (38.0-50.0); MCH 24.4 PG (29.0-34.0); MCHC 28.5 G/DL (30.0-36.0); MCV 85.8 FL (86-99); MEAN PLAT.VOLUME 8.7 uM^3 (9.0-12.4); PLATELET COUNT 200 K/uL (156-360); RBC DIS.WIDTH-CV 18.7 % (11.8-14.6); RBC DIS.WIDTH-SD 58.3 % (39-53); RED BLOOD COUNT 4.38 M/uL (4.00-5.50); WHITE BLOOD COUNT 7.2 K/uL (4.1-10.2)
[2017-03-03 02:10] LABS: CHLORIDE 99 mEq/L (99-109); SODIUM 136 mEq/L (136-147)
[2017-03-03 02:12] LABS: GLUCOSE 325 mg/dL (70-99)
[2017-03-03 02:13] LABS: PTT 34.1 (25-32)
[2017-03-03 02:14] LABS: ANION GAP 15 MEQ/L (2-14)
[2017-03-03 02:16] LABS: GFR ESTIMATE (CALCULATED) 14 mL/min/
[2017-03-03 02:17] LABS: UREA NITROGEN (BUN) 43 mg/dL (9-23)
[2017-03-03 02:22] LABS: TROP-I INTERPRETATION NEGATIVE; TROPONIN-I 0.02 ng/mL (0.0-0.30)
[2017-03-03 02:48] VITALS: BP 126/82
== END 2017-03-03 02:52 | disposition left against medical advice (07) ==
LOC: EME 01:10
PROVIDERS: Emergency Medicine
DX: R06.00 Dyspnea, unspecified (principal); I12.9 Hypertensive chronic kidney disease with stage 1 through stage 4 chronic kidney disease, or unspecified chronic kidney disease; N18.9 Chronic kidney disease, unspecified; Z99.2 Dependence on renal dialysis; E11.9 Type 2 diabetes mellitus without complications; J44.9 Chronic obstructive pulmonary disease, unspecified; J45.909 Unspecified asthma, uncomplicated; I25.2 Old myocardial infarction; K21.9 Gastro-esophageal reflux disease without esophagitis; R56.9 Unspecified convulsions; G89.29 Other chronic pain; Z87.442 Personal history of urinary calculi; Z87.891 Personal history of nicotine dependence
CPT/HCPCS: 71010; 80048; 84484; 85027; 85610; 85730; 93005; 99281; 99284

== ENCOUNTER 2017-03-04 14:24 | Emergency (ER) | payer OTHER ==
[~2017-03-04] VITALS: Ht 185.4 cm; Wt 155.0 kg
[2017-03-04 14:51] LABS: HEMATOCRIT 37.1 % (38.0-50.0); MCH 24.4 PG (29.0-34.0); MCHC 28.6 G/DL (30.0-36.0); MCV 85.3 FL (86-99); MEAN PLAT.VOLUME 8.5 uM^3 (9.0-12.4); PLATELET COUNT 218 K/uL (156-360); RBC DIS.WIDTH-CV 18.5 % (11.8-14.6); RBC DIS.WIDTH-SD 56.6 % (39-53); RED BLOOD COUNT 4.35 M/uL (4.00-5.50); WHITE BLOOD COUNT 6.6 K/uL (4.1-10.2)
[2017-03-04 15:00] LABS: CHLORIDE 97 mEq/L (99-109); POTASSIUM 4.5 mEq/L (3.7-5.4); SODIUM 134 mEq/L (136-147)
[2017-03-04 15:02] LABS: GLUCOSE 245 mg/dL (70-99)
[2017-03-04 15:03] LABS: ANION GAP 13 MEQ/L (2-14)
[2017-03-04 15:04] LABS: TOTAL BILIRUBIN 0.3 mg/dL (0.0-1.0)
[2017-03-04 15:05] LABS: ALKALINE PHOSPHATASE 109 IU/L (3-129)
[2017-03-04 15:06] LABS: GFR ESTIMATE (CALCULATED) 18 mL/min/
[2017-03-04 15:07] LABS: UREA NITROGEN (BUN) 33 mg/dL (9-23)
[2017-03-04 17:17] VITALS: BP 128/71
== END 2017-03-04 17:19 | disposition home or self-care (01) ==
LOC: EME 14:24
DX: R11.0 Nausea (principal); I12.0 Hypertensive chronic kidney disease with stage 5 chronic kidney disease or end stage renal disease; E11.22 Type 2 diabetes mellitus with diabetic chronic kidney disease; N18.6 End stage renal disease; Z99.2 Dependence on renal dialysis; Z79.4 Long term (current) use of insulin; D64.9 Anemia, unspecified; K59.09 Other constipation; J44.9 Chronic obstructive pulmonary disease, unspecified; J45.909 Unspecified asthma, uncomplicated; G89.29 Other chronic pain; I25.2 Old myocardial infarction; K21.9 Gastro-esophageal reflux disease without esophagitis; R56.9 Unspecified convulsions; I50.9 Heart failure, unspecified; F32.9 Major depressive disorder, single episode, unspecified; Z89.612 Acquired absence of left leg above knee; Z89.611 Acquired absence of right leg above knee; Z87.891 Personal history of nicotine dependence
CPT/HCPCS: 80053; 81003; 85027; 99281; 99283; J2550

== ENCOUNTER 2017-03-07 21:54 | Emergency (ER) | payer OTHER ==
[~2017-03-07] VITALS: Ht 185.4 cm; Wt 155.0 kg
[2017-03-07 23:08] LABS: HEMATOCRIT 35.3 % (38.0-50.0); MCH 24.8 PG (29.0-34.0); MCHC 28.9 G/DL (30.0-36.0); MCV 85.7 FL (86-99); MEAN PLAT.VOLUME 8.3 uM^3 (9.0-12.4); PLATELET COUNT 217 K/uL (156-360); RBC DIS.WIDTH-CV 19.1 % (11.8-14.6); RBC DIS.WIDTH-SD 59.4 % (39-53); RED BLOOD COUNT 4.12 M/uL (4.00-5.50)
[2017-03-07 23:09] LABS: WHITE BLOOD COUNT 8.8 K/uL (4.1-10.2)
[2017-03-07 23:17] LABS: CHLORIDE 101 mEq/L (99-109); POTASSIUM 5.2 mEq/L (3.7-5.4); SODIUM 136 mEq/L (136-147)
[2017-03-07 23:19] LABS: GLUCOSE 169 mg/dL (70-99)
[2017-03-07 23:21] LABS: ANION GAP 14 MEQ/L (2-14); TOTAL BILIRUBIN 0.3 mg/dL (0.0-1.0)
[2017-03-07 23:23] LABS: GFR ESTIMATE (CALCULATED) 16 mL/min/
[2017-03-07 23:24] LABS: UREA NITROGEN (BUN) 40 mg/dL (9-23)
[2017-03-07 23:27] LABS: LIPASE 16 U/L (1.0-51.0)
[2017-03-07 23:32] LABS: ALKALINE PHOSPHATASE 164 IU/L (3-129)
[2017-03-07] MEDS ORDERED: PROMETHAZINE HC25 M1 PO (23:49)
[2017-03-07] MEDS ORDERED: ATIVAN0.5 MG PO (23:49)
[2017-03-08 00:18] VITALS: BP 129/73
== END 2017-03-08 00:19 | disposition home or self-care (01) ==
LOC: EME 21:54
PROVIDERS: Emergency Medicine
DX: R11.0 Nausea (principal); D64.9 Anemia, unspecified; I12.0 Hypertensive chronic kidney disease with stage 5 chronic kidney disease or end stage renal disease; N18.6 End stage renal disease; Z99.2 Dependence on renal dialysis; J45.909 Unspecified asthma, uncomplicated; G89.29 Other chronic pain; E11.9 Type 2 diabetes mellitus without complications; J44.9 Chronic obstructive pulmonary disease, unspecified; I25.2 Old myocardial infarction; K21.9 Gastro-esophageal reflux disease without esophagitis; R56.9 Unspecified convulsions; Z87.891 Personal history of nicotine dependence; Z79.4 Long term (current) use of insulin; Z79.82 Long term (current) use of aspirin; Z87.442 Personal history of urinary calculi; Z89.612 Acquired absence of left leg above knee; Z89.611 Acquired absence of right leg above knee
CPT/HCPCS: 80053; 83690; 85027; 99281; 99285; J2550

== ENCOUNTER 2017-03-13 16:59 | Emergency (ER) | payer OTHER ==
[~2017-03-13] VITALS: Ht 185.4 cm; Wt 162.5 kg
[2017-03-13 19:11] LABS: EOSINOPHIL (%) 3.9 % (0-5); EOSINOPHIL COUNT 0.3 K/uL (0-0.3); HEMATOCRIT 32.3 % (38.0-50.0); IMMATURE GRANULOCYTE (%) 1.7 % (0.0-0.7); IMMATURE GRANULOCYTE COUNT 0.2 K/uL; INSTRUMENT ABS NEUTROPHIL CT 6.8 K/uL; LYMPHOCYTE COUNT 0.5 K/uL (1.0-2.8); MCH 24.4 PG (29.0-34.0); MCHC 28.5 G/DL (30.0-36.0); MCV 85.7 FL (86-99); MEAN PLAT.VOLUME 8.6 uM^3 (9.0-12.4); MONOCYTE (%) 9.5 % (3-12); MONOCYTE COUNT 0.8 K/uL (0-0.8); NEUTROPHIL (%) 78.8 % (45-76); NEUTROPHIL COUNT 6.8 K/uL (1.8-6.4); PLATELET COUNT 248 K/uL (156-360); RBC DIS.WIDTH-CV 18.6 % (11.8-14.6); RBC DIS.WIDTH-SD 57.8 % (39-53); RED BLOOD COUNT 3.77 M/uL (4.00-5.50); WHITE BLOOD COUNT 8.7 K/uL (4.1-10.2)
[2017-03-13 19:34] LABS: TROP-I INTERPRETATION NEGATIVE; TROPONIN-I < 0.01 ng/mL (0.0-0.30)
[2017-03-13 19:46] LABS: CHLORIDE 98 mEq/L (99-109); SODIUM 138 mEq/L (136-147)
[2017-03-13 19:48] LABS: GLUCOSE 381 mg/dL (70-99)
[2017-03-13 19:49] LABS: ANION GAP 14 MEQ/L (2-14)
[2017-03-13 19:50] LABS: TOTAL BILIRUBIN 0.3 mg/dL (0.0-1.0)
[2017-03-13 19:52] LABS: ALKALINE PHOSPHATASE 120 IU/L (3-129); GFR ESTIMATE (CALCULATED) 17 mL/min/
[2017-03-13 19:53] LABS: UREA NITROGEN (BUN) 40 mg/dL (9-23)
[2017-03-13 21:18] VITALS: BP 156/70
== END 2017-03-13 21:29 | disposition home or self-care (01) ==
LOC: EME 16:59
PROVIDERS: Emergency Medicine
DX: R11.2 Nausea with vomiting, unspecified (principal); J45.909 Unspecified asthma, uncomplicated; I12.9 Hypertensive chronic kidney disease with stage 1 through stage 4 chronic kidney disease, or unspecified chronic kidney disease; N18.9 Chronic kidney disease, unspecified; Z99.2 Dependence on renal dialysis; E11.9 Type 2 diabetes mellitus without complications; Z79.4 Long term (current) use of insulin; Z89.611 Acquired absence of right leg above knee; Z89.612 Acquired absence of left leg above knee; Z88.8 Allergy status to other drugs, medicaments and biological substances; Z91.041 Radiographic dye allergy status; Z88.1 Allergy status to other antibiotic agents; Z87.891 Personal history of nicotine dependence
CPT/HCPCS: 71010; 80053; 83605; 84484; 85025; 87040; 93005; 99281; 99283

== ENCOUNTER 2017-04-14 17:55 | Emergency (ER) | payer OTHER ==
[~2017-04-14] VITALS: Ht 185.4 cm; Wt 166.6 kg
[2017-04-14 18:24] LABS: HEMATOCRIT 29.1 % (38.0-50.0); MCH 24.8 PG (29.0-34.0); MCHC 28.2 G/DL (30.0-36.0); MCV 87.9 FL (86-99); MEAN PLAT.VOLUME 10.1 uM^3 (9.0-12.4); PLATELET COUNT 85 K/uL (156-360); RBC DIS.WIDTH-CV 18.2 % (11.8-14.6); RBC DIS.WIDTH-SD 58.4 % (39-53); RED BLOOD COUNT 3.31 M/uL (4.00-5.50); WHITE BLOOD COUNT 7.4 K/uL (4.1-10.2)
[2017-04-14 18:59] LABS: CHLORIDE 100 mEq/L (99-109); POTASSIUM 5.2 mEq/L (3.7-5.4); SODIUM 133 mEq/L (136-147)
[2017-04-14 19:01] LABS: GLUCOSE 387 mg/dL (70-99)
[2017-04-14 19:02] LABS: ANION GAP 14 MEQ/L (2-14)
[2017-04-14 19:04] LABS: GFR ESTIMATE (CALCULATED) 23 mL/min/
[2017-04-14 19:43] LABS: UREA NITROGEN (BUN) 25 mg/dL (9-23)
[2017-04-14 20:07] LABS: BASE EXCESS 0.3 mEq/L (-3 to +3); BICARBONATE 27.1 mEq/L (22-26); CARBOXY HGB 0.4 % (0-5); PCO2 55 mm Hg (35-45)
[2017-04-14 20:09] LABS: PO2 38 mm Hg (80-100); SITE A+C+
[2017-04-14 20:10] LABS: DEVICE N; O2 FLOW 4 L/MIN; TOTAL RESP RATE 20 resp/min
[2017-04-14 20:40] LABS: TROP-I INTERPRETATION NEGATIVE; TROPONIN-I < 0.01 ng/mL (0.0-0.30)
[2017-04-14] MEDS ORDERED: OXYCODONE HCL30 MG PO (21:04)
[2017-04-14] MEDS ORDERED: PREDNISONE50 MG PO (21:04)
[2017-04-14 21:39] VITALS: BP 130/72
== END 2017-04-14 21:49 | disposition home or self-care (01) ==
LOC: EME 17:55
PROVIDERS: Emergency Medicine
DX: J44.1 Chronic obstructive pulmonary disease with (acute) exacerbation (principal); G89.29 Other chronic pain; J45.909 Unspecified asthma, uncomplicated; I10 Essential (primary) hypertension; E11.9 Type 2 diabetes mellitus without complications; Z79.4 Long term (current) use of insulin; Z89.611 Acquired absence of right leg above knee; Z89.612 Acquired absence of left leg above knee; Z88.8 Allergy status to other drugs, medicaments and biological substances; Z91.041 Radiographic dye allergy status; Z88.1 Allergy status to other antibiotic agents; Z87.891 Personal history of nicotine dependence; Z87.442 Personal history of urinary calculi; I25.2 Old myocardial infarction; Z79.82 Long term (current) use of aspirin
CPT/HCPCS: 36600; 71010; 80048; 82803; 84484; 85027; 93005; 99281; 99284

== ENCOUNTER 2017-04-24 01:15 | Emergency (ER) | payer OTHER ==
[~2017-04-24] VITALS: Ht 185.4 cm; Wt 168.0 kg
[2017-04-24 02:34] LABS: CHLORIDE 98 mEq/L (99-109); POTASSIUM 3.2 mEq/L (3.7-5.4)
[2017-04-24 02:35] LABS: SODIUM 136 mEq/L (136-147)
[2017-04-24 02:37] LABS: EOSINOPHIL COUNT 0.5 K/uL (0-0.3); GLUCOSE 269 mg/dL (70-99); HEMATOCRIT 28.8 % (38.0-50.0); IMMATURE GRANULOCYTE (%) 0.6 % (0.0-0.7); IMMATURE GRANULOCYTE COUNT 0.1 K/uL; INSTRUMENT ABS NEUTROPHIL CT 6.4 K/uL; LYMPHOCYTE COUNT 0.5 K/uL (1.0-2.8); MCH 24.5 PG (29.0-34.0); MCHC 28.1 G/DL (30.0-36.0); MEAN PLAT.VOLUME 8.2 uM^3 (9.0-12.4); MONOCYTE (%) 4.9 % (3-12); MONOCYTE COUNT 0.4 K/uL (0-0.8); NEUTROPHIL (%) 81.2 % (45-76); NEUTROPHIL COUNT 6.4 K/uL (1.8-6.4); RBC DIS.WIDTH-CV 18.1 % (11.8-14.6); RBC DIS.WIDTH-SD 57.2 % (39-53); RED BLOOD COUNT 3.31 M/uL (4.00-5.50); WHITE BLOOD COUNT 7.9 K/uL (4.1-10.2)
[2017-04-24 02:38] LABS: ANION GAP 12 MEQ/L (2-14); PLATELET COUNT 177 K/uL (156-360)
[2017-04-24 02:39] LABS: TOTAL BILIRUBIN 0.3 mg/dL (0.0-1.0)
[2017-04-24 02:40] LABS: ALKALINE PHOSPHATASE 133 IU/L (3-129); GFR ESTIMATE (CALCULATED) 27 mL/min/
[2017-04-24 02:42] LABS: UREA NITROGEN (BUN) 20 mg/dL (9-23)
[2017-04-24 02:46] LABS: TROP-I INTERPRETATION NEGATIVE; TROPONIN-I 0.03 ng/mL (0.0-0.30)
[2017-04-24 05:36] LABS: TROP-I INTERPRETATION NEGATIVE; TROPONIN-I 0.04 ng/mL (0.0-0.30)
[2017-04-24] MEDS ORDERED: PREDNISONE50 MG PO (06:09)
[2017-04-24 06:19] VITALS: BP 80/52
== END 2017-04-24 06:19 | disposition home or self-care (01) ==
LOC: EME 01:15
PROVIDERS: Emergency Medicine
DX: J44.9 Chronic obstructive pulmonary disease, unspecified (principal); I12.9 Hypertensive chronic kidney disease with stage 1 through stage 4 chronic kidney disease, or unspecified chronic kidney disease; N18.9 Chronic kidney disease, unspecified; Z99.2 Dependence on renal dialysis; E11.9 Type 2 diabetes mellitus without complications; I10 Essential (primary) hypertension; K21.9 Gastro-esophageal reflux disease without esophagitis; Z87.442 Personal history of urinary calculi; Z79.4 Long term (current) use of insulin; Z79.82 Long term (current) use of aspirin; Z87.891 Personal history of nicotine dependence
CPT/HCPCS: 71010; 80053; 84484; 85025; 93005; 99281; 99285; J2930

== ENCOUNTER 2017-04-29 14:04 | Emergency (ER) | payer OTHER ==
[~2017-04-29] VITALS: Ht 185.4 cm; Wt 173.9 kg
[2017-04-29 15:55] LABS: EOSINOPHIL (%) 0.6 % (0-5); EOSINOPHIL COUNT 0.1 K/uL (0-0.3); HEMATOCRIT 27.7 % (38.0-50.0); IMMATURE GRANULOCYTE (%) 0.8 % (0.0-0.7); IMMATURE GRANULOCYTE COUNT 0.1 K/uL; LYMPHOCYTE COUNT 0.4 K/uL (1.0-2.8); MCH 24.5 PG (29.0-34.0); MCHC 28.5 G/DL (30.0-36.0); MCV 85.8 FL (86-99); MEAN PLAT.VOLUME 9.1 uM^3 (9.0-12.4); MONOCYTE (%) 5.6 % (3-12); MONOCYTE COUNT 0.9 K/uL (0-0.8); NEUTROPHIL (%) 90.4 % (45-76); PLATELET COUNT 195 K/uL (156-360); RBC DIS.WIDTH-CV 17.4 % (11.8-14.6); RBC DIS.WIDTH-SD 55.2 % (39-53); RED BLOOD COUNT 3.23 M/uL (4.00-5.50); WHITE BLOOD COUNT 15.5 K/uL (4.1-10.2)
[2017-04-29 16:06] LABS: CHLORIDE 98 mEq/L (99-109); SODIUM 135 mEq/L (136-147)
[2017-04-29 16:09] LABS: GLUCOSE 233 mg/dL (70-99)
[2017-04-29 16:10] LABS: ANION GAP 15 MEQ/L (2-14)
[2017-04-29 16:11] LABS: TOTAL BILIRUBIN 0.3 mg/dL (0.0-1.0)
[2017-04-29 16:12] LABS: ALKALINE PHOSPHATASE 159 IU/L (3-129)
[2017-04-29 16:16] LABS: TROP-I INTERPRETATION NEGATIVE; TROPONIN-I 0.02 ng/mL (0.0-0.30)
[2017-04-29 16:21] LABS: GFR ESTIMATE (CALCULATED) 17 mL/min/; POTASSIUM 3.9 mEq/L (3.7-5.4); UREA NITROGEN (BUN) 37 mg/dL (9-23)
[2017-04-30 05:49] VITALS: BP 95/56
== END 2017-04-30 05:50 | disposition left against medical advice (07) ==
LOC: EME 14:04
PROVIDERS: Emergency Medicine
DX: R06.09 Other forms of dyspnea (principal); R07.9 Chest pain, unspecified; I13.2 Hypertensive heart and chronic kidney disease with heart failure and with stage 5 chronic kidney disease, or end stage renal disease; I50.9 Heart failure, unspecified; N18.6 End stage renal disease; E11.22 Type 2 diabetes mellitus with diabetic chronic kidney disease; I25.2 Old myocardial infarction; J44.9 Chronic obstructive pulmonary disease, unspecified; I48.91 Unspecified atrial fibrillation; K21.9 Gastro-esophageal reflux disease without esophagitis; Z79.4 Long term (current) use of insulin; F32.9 Major depressive disorder, single episode, unspecified; Z87.891 Personal history of nicotine dependence; Z90.49 Acquired absence of other specified parts of digestive tract; Z87.442 Personal history of urinary calculi; Z88.8 Allergy status to other drugs, medicaments and biological substances
CPT/HCPCS: 71020; 80053; 83880; 84484; 85025; 93005; 99281; 99285

== ENCOUNTER 2017-05-26 15:32 | Emergency (ER) | payer OTHER ==
[~2017-05-26] VITALS: Ht 185.4 cm; Wt 166.0 kg
[2017-05-26 17:10] LABS: EOSINOPHIL (%) 3.4 % (0-5); EOSINOPHIL COUNT 0.3 K/uL (0-0.3); IMMATURE GRANULOCYTE (%) 0.5 % (0.0-0.7); IMMATURE GRANULOCYTE COUNT 0.1 K/uL; INSTRUMENT ABS NEUTROPHIL CT 8.5 K/uL; LYMPHOCYTE COUNT 0.4 K/uL (1.0-2.8); MCH 23.2 PG (29.0-34.0); MCHC 28.3 G/DL (30.0-36.0); MCV 81.7 FL (86-99); MEAN PLAT.VOLUME 9.4 uM^3 (9.0-12.4); MONOCYTE COUNT 0.7 K/uL (0-0.8); NEUTROPHIL (%) 85.1 % (45-76); NEUTROPHIL COUNT 8.5 K/uL (1.8-6.4); PLATELET COUNT 240 K/uL (156-360); RBC DIS.WIDTH-CV 16.6 % (11.8-14.6); RBC DIS.WIDTH-SD 49.6 % (39-53); RED BLOOD COUNT 3.67 M/uL (4.00-5.50)
[2017-05-26 17:26] LABS: TROP-I INTERPRETATION NEGATIVE; TROPONIN-I 0.01 ng/mL (0.0-0.30)
[2017-05-26 17:53] LABS: CHLORIDE 99 mEq/L (99-109); POTASSIUM 4.4 mEq/L (3.7-5.4); SODIUM 137 mEq/L (136-147)
[2017-05-26 17:54] LABS: MAGNESIUM 2.9 mg/dL (1.3-2.7)
[2017-05-26 17:56] LABS: GLUCOSE 200 mg/dL (70-99)
[2017-05-26 17:57] LABS: ANION GAP 15 MEQ/L (2-14); TOTAL BILIRUBIN 0.3 mg/dL (0.0-1.0)
[2017-05-26 17:59] LABS: ALKALINE PHOSPHATASE 127 IU/L (3-129); GFR ESTIMATE (CALCULATED) 12 mL/min/
[2017-05-26 18:00] LABS: UREA NITROGEN (BUN) 59 mg/dL (9-23)
[2017-05-26] MEDS ORDERED: REGLAN10 MG PO (18:58)
[2017-05-26 19:04] VITALS: BP 174/77
[2017-05-27] MEDS ORDERED: AMOXICILLIN500 M1 PO (22:08)
[2017-05-27] MEDS ORDERED: AMOXICILLIN500 MG PO (23:09)
[2017-05-31] MEDS ORDERED: CARDIZEM CD240 MG PO (16:23)
== END 2017-05-26 19:04 | disposition home or self-care (01) ==
LOC: EME 15:32
PROVIDERS: Emergency Medicine
DX: R11.2 Nausea with vomiting, unspecified (principal); E11.22 Type 2 diabetes mellitus with diabetic chronic kidney disease; N18.6 End stage renal disease; Z89.611 Acquired absence of right leg above knee; Z89.612 Acquired absence of left leg above knee; Z99.2 Dependence on renal dialysis; Z79.4 Long term (current) use of insulin; I25.2 Old myocardial infarction; K21.9 Gastro-esophageal reflux disease without esophagitis; F32.9 Major depressive disorder, single episode, unspecified; J44.9 Chronic obstructive pulmonary disease, unspecified; I50.9 Heart failure, unspecified; Z87.442 Personal history of urinary calculi; Z87.891 Personal history of nicotine dependence; Z88.1 Allergy status to other antibiotic agents; Z91.041 Radiographic dye allergy status
CPT/HCPCS: 80053; 81003; 83735; 84100; 84484; 85025; 87040; 87801; 93005; 99281; 99285; J2405; J2765

== ENCOUNTER 2017-05-27 19:15 | Emergency (ER) | payer OTHER ==
[~2017-05-27] VITALS: Ht 185.4 cm; Wt 166.0 kg
[~2017-05-27 19:15] MED LIST changes: +REGLAN10 MG PO
[2017-05-27 21:09] LABS: EOSINOPHIL (%) 4.3 % (0-5); EOSINOPHIL COUNT 0.4 K/uL (0-0.3); HEMATOCRIT 29.9 % (38.0-50.0); IMMATURE GRANULOCYTE (%) 0.9 % (0.0-0.7); IMMATURE GRANULOCYTE COUNT 0.1 K/uL; INSTRUMENT ABS NEUTROPHIL CT 8.3 K/uL; LYMPHOCYTE COUNT 0.6 K/uL (1.0-2.8); MCH 23.4 PG (29.0-34.0); MCHC 28.4 G/DL (30.0-36.0); MCV 82.1 FL (86-99); MEAN PLAT.VOLUME 8.9 uM^3 (9.0-12.4); MONOCYTE (%) 8.9 % (3-12); MONOCYTE COUNT 0.9 K/uL (0-0.8); NEUTROPHIL (%) 80.2 % (45-76); NEUTROPHIL COUNT 8.3 K/uL (1.8-6.4); PLATELET COUNT 223 K/uL (156-360); RBC DIS.WIDTH-CV 16.5 % (11.8-14.6); RBC DIS.WIDTH-SD 49.5 % (39-53); RED BLOOD COUNT 3.64 M/uL (4.00-5.50); WHITE BLOOD COUNT 10.3 K/uL (4.1-10.2)
[2017-05-27 21:14] LABS: PROTHROMBIN TIME 11.2 SEC (10.2-12.9)
[2017-05-27 21:17] LABS: PTT 20.3 SEC (25-37)
[2017-05-27 21:19] LABS: CHLORIDE 97 mEq/L (99-109); POTASSIUM 4.3 mEq/L (3.7-5.4); SODIUM 133 mEq/L (136-147)
[2017-05-27 21:22] LABS: GLUCOSE 264 mg/dL (70-99)
[2017-05-27 21:23] LABS: ANION GAP 13 MEQ/L (2-14); TOTAL BILIRUBIN 0.3 mg/dL (0.0-1.0)
[2017-05-27 21:25] LABS: ALKALINE PHOSPHATASE 136 IU/L (3-129); GFR ESTIMATE (CALCULATED) 11 mL/min/
[2017-05-27 21:26] LABS: UREA NITROGEN (BUN) 63 mg/dL (9-23)
[2017-05-27 21:29] LABS: LIPASE 16 U/L (1.0-51.0); TROP-I INTERPRETATION NEGATIVE; TROPONIN-I 0.02 ng/mL (0.0-0.30)
[2017-05-27] MEDS ORDERED: AMOXICILLIN500 M1 PO (22:08)
[2017-05-27 22:43] VITALS: BP 152/82
[2017-05-27] MEDS ORDERED: AMOXICILLIN500 MG PO (23:09)
[2017-05-31] MEDS ORDERED: CARDIZEM CD240 MG PO (16:23)
== END 2017-05-27 22:45 | disposition home or self-care (01) ==
LOC: EME 19:15
PROVIDERS: Emergency Medicine
DX: R79.89 Other specified abnormal findings of blood chemistry (principal); E11.9 Type 2 diabetes mellitus without complications; J44.9 Chronic obstructive pulmonary disease, unspecified; K21.9 Gastro-esophageal reflux disease without esophagitis; I25.2 Old myocardial infarction; Z89.611 Acquired absence of right leg above knee; Z89.612 Acquired absence of left leg above knee; Z87.442 Personal history of urinary calculi; Z79.4 Long term (current) use of insulin; Z87.891 Personal history of nicotine dependence
CPT/HCPCS: 80053; 83605; 83690; 84484; 85025; 85610; 85730; 93005; 99281; 99284; J2270

== ENCOUNTER 2017-06-01 00:20 | Emergency (ER) | payer OTHER ==
[~2017-06-01] VITALS: Ht 185.4 cm; Wt 179.2 kg
[~2017-06-01 00:20] MED LIST changes: -ALLEGRA ALLERG180 MG PO; -OMEPRAZOLE20 MG PO; -PROZAC10 MG PO
[2017-06-01 01:46] LABS: EOSINOPHIL (%) 0 % (0-5); HEMATOCRIT 28.9 % (38.0-50.0); IMMATURE GRANULOCYTE COUNT 0.1 K/uL; INSTRUMENT ABS NEUTROPHIL CT 9.1 K/uL; LYMPHOCYTE COUNT 0.3 K/uL (1.0-2.8); MCH 23.2 PG (29.0-34.0); MCHC 28.7 G/DL (30.0-36.0); MEAN PLAT.VOLUME 8.9 uM^3 (9.0-12.4); MONOCYTE (%) 0.5 % (3-12); MONOCYTE COUNT 0.1 K/uL (0-0.8); NEUTROPHIL (%) 95.5 % (45-76); NEUTROPHIL COUNT 9.1 K/uL (1.8-6.4); PLATELET COUNT 251 K/uL (156-360); RBC DIS.WIDTH-CV 16.9 % (11.8-14.6); RBC DIS.WIDTH-SD 49.1 % (39-53); RED BLOOD COUNT 3.57 M/uL (4.00-5.50); WHITE BLOOD COUNT 9.6 K/uL (4.1-10.2)
[2017-06-01 01:54] LABS: CHLORIDE 99 mEq/L (99-109); SODIUM 137 mEq/L (136-147)
[2017-06-01 01:57] LABS: ANION GAP 18 MEQ/L (2-14)
[2017-06-01 02:00] LABS: GFR ESTIMATE (CALCULATED) 11 mL/min/
[2017-06-01 02:01] LABS: UREA NITROGEN (BUN) 65 mg/dL (9-23)
[2017-06-01 02:05] LABS: GLUCOSE 462 mg/dL (70-99)
[2017-06-01 02:07] LABS: TROP-I INTERPRETATION NEGATIVE; TROPONIN-I 0.02 ng/mL (0.0-0.30)
[2017-06-01 03:01] LABS: CARBON DIOXIDE (BICARBONATE) 22.9 MEQ/L (20-31)
[2017-06-01 03:54] LABS: POINT-OF-CARE METER ID UU13113702
[2017-06-01 04:29] VITALS: BP 208/84
[2017-06-01] MEDS ORDERED: REGLAN10 MG PO (08:10)
[2017-06-01] MEDS ORDERED: ALLEGRA ALLERG180 MG PO (08:11)
[2017-06-01] MEDS ORDERED: PROZAC10 MG PO (08:14)
[2017-06-01] MEDS ORDERED: ATIVAN1 MG PO (08:16)
[2017-06-01] MEDS ORDERED: OMEPRAZOLE20 MG PO (08:17)
[2017-06-01] MEDS ORDERED: ELIQUIS5 MG PO (08:20)
== END 2017-06-01 04:32 | disposition home or self-care (01) ==
LOC: EME 00:20
PROVIDERS: Emergency Medicine
DX: E11.65 Type 2 diabetes mellitus with hyperglycemia (principal); R06.00 Dyspnea, unspecified; N18.9 Chronic kidney disease, unspecified; J44.9 Chronic obstructive pulmonary disease, unspecified; Z99.81 Dependence on supplemental oxygen; Z99.2 Dependence on renal dialysis; Z79.4 Long term (current) use of insulin; F32.9 Major depressive disorder, single episode, unspecified; I25.2 Old myocardial infarction; I50.9 Heart failure, unspecified; K21.9 Gastro-esophageal reflux disease without esophagitis; Z91.041 Radiographic dye allergy status; Z87.442 Personal history of urinary calculi; Z88.8 Allergy status to other drugs, medicaments and biological substances; Z87.891 Personal history of nicotine dependence; Z89.612 Acquired absence of left leg above knee; Z89.611 Acquired absence of right leg above knee
CPT/HCPCS: 71010; 80048; 82803; 82948; 84484; 85025; 93005; 99281; 99284

== ENCOUNTER → 2017-06-01 | Day surgery (SDC) | payer OTHER ==
[~2017-06-01] VITALS: Ht 182.9 cm; Wt 166.0 kg
[~2017-06-01] MED LIST changes: +ALLEGRA ALLERG180 MG PO; +AMOXICILLIN500 M1 PO; +AMOXICILLIN500 MG PO; +CARDIZEM CD240 MG PO; +OMEPRAZOLE20 MG PO; +PROZAC10 MG PO
[2017-06-01 08:34] LABS: POINT-OF-CARE METER ID UU13113696
[2017-06-01 09:40] LABS: METH RESISTANT S AUREUS PCR NEGATIVE (NEGATIVE)
[2017-06-01 09:42] LABS: PROBE CHECK PASS; SPECIMEN PROCESSING CONTROL PASS
[2017-06-01 09:47] LABS: POINT-OF-CARE METER ID UU13113819
[2017-06-01 10:38] LABS: POINT-OF-CARE METER ID UU13113819
== END | disposition home or self-care (01) ==
LOC: CATH 04-28 09:30 → OPR 04-28 10:00 → CATH 04-28 10:30
PROVIDERS: Surgery
DX: T82.858A Stenosis of other vascular prosthetic devices, implants and grafts, initial encounter (principal); I12.0 Hypertensive chronic kidney disease with stage 5 chronic kidney disease or end stage renal disease; N18.6 End stage renal disease; Z99.2 Dependence on renal dialysis; F17.210 Nicotine dependence, cigarettes, uncomplicated; E66.01 Morbid (severe) obesity due to excess calories; Z68.42 Body mass index [BMI] 45.0-49.9, adult
CPT/HCPCS: 82948; 87641; C1725; C1769; C1894; J1644; J1815

== ENCOUNTER 2017-06-17 04:49 | Emergency (ER) | payer OTHER ==
[~2017-06-17] VITALS: Ht 185.4 cm; Wt 166.9 kg
[~2017-06-17 04:49] MED LIST changes: +ALLEGRA ALLERG180 MG PO; +OMEPRAZOLE20 MG PO; +PROZAC10 MG PO
[2017-06-17 06:08] LABS: HEMATOCRIT 27.2 % (38.0-50.0); MCH 24.4 PG (29.0-34.0); RBC DIS.WIDTH-CV 16.8 % (11.8-14.6); RED BLOOD COUNT 3.24 M/uL (4.00-5.50); WHITE BLOOD COUNT 7.1 K/uL (4.1-10.2)
[2017-06-17 06:10] LABS: CHLORIDE 98 mEq/L (99-109); POTASSIUM 4.6 mEq/L (3.7-5.4); SODIUM 135 mEq/L (136-147)
[2017-06-17 06:11] LABS: GLUCOSE 207 mg/dL (70-99)
[2017-06-17 06:13] LABS: ANION GAP 13 MEQ/L (2-14)
[2017-06-17 06:15] LABS: GFR ESTIMATE (CALCULATED) 13 mL/min/
[2017-06-17 06:16] LABS: UREA NITROGEN (BUN) 38 mg/dL (9-23)
[2017-06-17 06:19] LABS: TROP-I INTERPRETATION NEGATIVE; TROPONIN-I 0.05 ng/mL (0.0-0.30)
[2017-06-17 07:06] LABS: MEAN PLAT.VOLUME 8.9 uM^3 (9.0-12.4); PLAT.SUFFICIENCY ADEQUATE
[2017-06-17 07:30] VITALS: BP 148/79
[2017-06-17 07:30] LABS: PLATELET COUNT 174 K/uL (156-360)
== END 2017-06-17 07:48 | disposition home or self-care (01) ==
LOC: EME → EDBD 04:49 → EME 07:48
PROVIDERS: Emergency Medicine
DX: R07.89 Other chest pain (principal); E11.22 Type 2 diabetes mellitus with diabetic chronic kidney disease; N18.9 Chronic kidney disease, unspecified; D63.1 Anemia in chronic kidney disease; J44.9 Chronic obstructive pulmonary disease, unspecified; Z99.81 Dependence on supplemental oxygen; Z79.4 Long term (current) use of insulin; I25.2 Old myocardial infarction; I50.9 Heart failure, unspecified; K21.9 Gastro-esophageal reflux disease without esophagitis; Z99.2 Dependence on renal dialysis; Z87.891 Personal history of nicotine dependence; Z89.611 Acquired absence of right leg above knee; Z89.612 Acquired absence of left leg above knee; Z87.442 Personal history of urinary calculi
CPT/HCPCS: 71010; 80048; 84484; 85027; 93005; 99281; 99284

== ENCOUNTER 2017-07-14 22:22 | Emergency (ER) | payer OTHER ==
[~2017-07-14] VITALS: Ht 185.4 cm; Wt 168.5 kg
[2017-07-14 22:38] VITALS: BP 175/46
== END 2017-07-15 00:30 | disposition left against medical advice (07) ==
LOC: EME 22:22
DX: R53.83 Other fatigue (principal); R25.8 Other abnormal involuntary movements; E11.22 Type 2 diabetes mellitus with diabetic chronic kidney disease; I12.0 Hypertensive chronic kidney disease with stage 5 chronic kidney disease or end stage renal disease; N18.6 End stage renal disease; Z99.2 Dependence on renal dialysis; Z53.21 Procedure and treatment not carried out due to patient leaving prior to being seen by health care provider

== ENCOUNTER 2017-07-31 18:59 | Emergency (ER) | payer OTHER ==
[~2017-07-31] VITALS: Ht 182.9 cm; Wt 169.0 kg
[2017-07-31 19:16] VITALS: BP 179/70
[2017-07-31] MEDS ORDERED: ZITHROMAX250 MG PO (19:31)
== END 2017-07-31 19:50 | disposition home or self-care (01) ==
LOC: EME 18:59
DX: J32.9 Chronic sinusitis, unspecified (principal); J02.9 Acute pharyngitis, unspecified; E11.9 Type 2 diabetes mellitus without complications; J44.9 Chronic obstructive pulmonary disease, unspecified; N18.6 End stage renal disease; Z99.2 Dependence on renal dialysis; Z89.611 Acquired absence of right leg above knee; Z89.612 Acquired absence of left leg above knee; Z79.4 Long term (current) use of insulin; Z79.01 Long term (current) use of anticoagulants; Z88.8 Allergy status to other drugs, medicaments and biological substances; Z91.041 Radiographic dye allergy status; Z79.82 Long term (current) use of aspirin; Z79.891 Long term (current) use of opiate analgesic
CPT/HCPCS: 99281; 99284

== ENCOUNTER 2017-08-03 00:57 | Emergency (ER) | payer OTHER ==
[~2017-08-03] VITALS: Ht 185.4 cm; Wt 168.0 kg
[~2017-08-03 00:57] MED LIST changes: +ZITHROMAX250 MG PO
[2017-08-03 01:18] VITALS: BP 186/66
== END 2017-08-03 02:07 | disposition left against medical advice (07) ==
LOC: EME 00:57
DX: Z53.21 Procedure and treatment not carried out due to patient leaving prior to being seen by health care provider (principal)

== ENCOUNTER 2017-09-17 05:03 | Emergency (ER) | payer OTHER ==
[~2017-09-17] VITALS: Ht 182.9 cm; Wt 166.3 kg
[2017-09-17 06:52] LABS: HEMATOCRIT 38.4 % (38.0-50.0); MCH 25.5 PG (29.0-34.0); MCHC 29.7 G/DL (30.0-36.0); MCV 85.9 FL (86-99); MEAN PLAT.VOLUME 8.7 uM^3 (9.0-12.4); PLATELET COUNT 155 K/uL (156-360); RBC DIS.WIDTH-CV 16.2 % (11.8-14.6); RED BLOOD COUNT 4.47 M/uL (4.00-5.50); WHITE BLOOD COUNT 9.1 K/uL (4.1-10.2)
[2017-09-17 07:13] LABS: CHLORIDE 95 MEQ/L (99-109); GFR ESTIMATE (CALCULATED) 11 mL/min/; GLUCOSE 222 mg/dL (70-99); SODIUM 132 MEQ/L (136-147); UREA NITROGEN (BUN) 63 mg/dL (9-23)
[2017-09-17 07:14] LABS: ALKALINE PHOSPHATASE 232 IU/L (3-129); ANION GAP 12 MEQ/L (2-14); MAGNESIUM 3.5 mg/dl (1.3-2.7); SAMPLE HEMOLYSIS CHECK 0; SAMPLE ICTERIC CHECK 0; SAMPLE LIPEMIA CHECK 0; TOTAL BILIRUBIN 0.2 MG/DL (0.0-1.0)
[2017-09-17 07:15] LABS: POTASSIUM 6.7 MEQ/L (3.7-5.4)
[2017-09-17 07:16] LABS: TROP-I INTERPRETATION NEGATIVE; TROPONIN-I 0.02 ng/mL (0.0-0.30)
[2017-09-17 09:29] LABS: POINT-OF-CARE METER ID UU13113702
[2017-09-17 12:01] LABS: POINT-OF-CARE METER ID UU13113702
[2017-09-17 19:11] VITALS: BP 208/89
[2017-09-19 12:34] LABS: HBSG INDEX 0.19
== END 2017-09-17 19:21 | disposition home or self-care (01) ==
LOC: EME 05:03
PROVIDERS: Emergency Medicine; Internal Medicine Nephrology
DX: I12.0 Hypertensive chronic kidney disease with stage 5 chronic kidney disease or end stage renal disease (principal); E11.22 Type 2 diabetes mellitus with diabetic chronic kidney disease; N18.6 End stage renal disease; Z99.2 Dependence on renal dialysis; Z79.4 Long term (current) use of insulin; E87.5 Hyperkalemia; R11.0 Nausea; J44.9 Chronic obstructive pulmonary disease, unspecified; E66.01 Morbid (severe) obesity due to excess calories; Z91.19 Patient's noncompliance with other medical treatment and regimen; Z89.512 Acquired absence of left leg below knee; Z89.511 Acquired absence of right leg below knee; Z79.01 Long term (current) use of anticoagulants; Z79.82 Long term (current) use of aspirin; Z87.891 Personal history of nicotine dependence; Z68.42 Body mass index [BMI] 45.0-49.9, adult
CPT/HCPCS: 80053; 82948; 83735; 84100; 84484; 85027; 87340; 93005; 94640; 99281; 99285; J0610; J1644; J7050; Q0169

== ENCOUNTER 2017-12-04 11:00 | Day surgery (SDC) | payer OTHER ==
[~2017-12-04] VITALS: Ht 185.4 cm; Wt 160.0 kg
[~2017-12-04 11:00] MED LIST changes: +OMEPRAZOLE40 M1 PO; +RELPAX40 MG PO
[2017-12-04 11:51] VITALS: BP 137/85
[2017-12-04 12:26] LABS: BASOPHIL (%) 0.7 % (0-1); BASOPHIL COUNT 0.1 K/uL (0-0.1); EOSINOPHIL (%) 4.4 % (0-5); EOSINOPHIL COUNT 0.4 K/uL (0-0.3); HEMATOCRIT 35.7 % (38.0-50.0); HEMOGLOBIN 10.6 G/DL (12.5-16.6); LYMPHOCYTE (%) 3.9 % (15-42); LYMPHOCYTE COUNT 0.4 K/uL (1.0-2.8); MCH 26.3 PG (29.0-34.0); MCHC 29.7 G/DL (30.0-36.0); MCV 88.6 FL (86-99); MONOCYTE (%) 6.7 % (3-12); MONOCYTE COUNT 0.6 K/uL (0-0.8); NEUTROPHIL (%) 83.3 % (45-76); NEUTROPHIL COUNT 7.9 K/uL (1.8-6.4); PLATELET COUNT 168 K/uL (156-360); RBC DIS.WIDTH-CV 15.8 % (11.8-14.6); RBC DIS.WIDTH-SD 50.3 % (39-53); RED BLOOD COUNT 4.03 M/uL (4.00-5.50); WHITE BLOOD COUNT 9.4 K/uL (4.1-10.2)
[2017-12-04 12:57] LABS: CHLORIDE 96 MEQ/L (99-109); CREATININE 7.1 MG/DL (0.6-1.3); GFR ESTIMATE (CALCULATED) 9 mL/min/ (58.99-99999); GLUCOSE 113 mg/dL (70-99); POTASSIUM 4.6 MEQ/L (3.7-5.4); SODIUM 132 MEQ/L (136-147); UREA NITROGEN (BUN) 41 mg/dL (9-23)
[2017-12-04 21:31] VITALS: BP 187/82
== END 2017-12-04 21:31 | disposition home or self-care (01) ==
LOC: SDC → 2EASTP 11:03 → SDC 15:26 → 2EASTP 21:31 → SDC 12-08 15:37
PROVIDERS: Surgery
DX: T82.41XA Breakdown (mechanical) of vascular dialysis catheter, initial encounter (principal); I12.0 Hypertensive chronic kidney disease with stage 5 chronic kidney disease or end stage renal disease; N18.6 End stage renal disease; E11.22 Type 2 diabetes mellitus with diabetic chronic kidney disease; Z99.2 Dependence on renal dialysis; E87.70 Fluid overload, unspecified; D63.1 Anemia in chronic kidney disease; E11.40 Type 2 diabetes mellitus with diabetic neuropathy, unspecified; E11.319 Type 2 diabetes mellitus with unspecified diabetic retinopathy without macular edema; E66.01 Morbid (severe) obesity due to excess calories; I73.9 Peripheral vascular disease, unspecified; G40.909 Epilepsy, unspecified, not intractable, without status epilepticus; K21.9 Gastro-esophageal reflux disease without esophagitis; Y83.8 Other surgical procedures as the cause of abnormal reaction of the patient, or of later complication, without mention of misadventure at the time of the procedure
CPT/HCPCS: 80048; 82948; 85025; C1750; G0257; G0378; J0690; J1644; J2250; J2405; J2710; J7040; S0020

== ENCOUNTER 2017-12-27 15:03 | Day surgery (SDC) | payer OTHER ==
[~2017-12-27] VITALS: Ht 185.4 cm; Wt 155.9 kg
[2017-12-27 16:28] VITALS: BP 234/102
[2017-12-28 11:03] LABS: HEPATITIS B SURFACE ANTIBODY Nonreactive; HEPATITIS B SURFACE ANTIGEN Nonreactive
== END 2017-12-27 21:58 | disposition left against medical advice (07) ==
LOC: SDC 15:03 → 2SOUTH 17:52 → ENRESERV 17:53 → 5EAST 21:57
PROVIDERS: Internal Medicine Nephrology; Surgery
DX: T82.41XA Breakdown (mechanical) of vascular dialysis catheter, initial encounter (principal); I12.0 Hypertensive chronic kidney disease with stage 5 chronic kidney disease or end stage renal disease; E11.22 Type 2 diabetes mellitus with diabetic chronic kidney disease; N18.6 End stage renal disease; Z99.2 Dependence on renal dialysis; Z53.09 Procedure and treatment not carried out because of other contraindication; E87.79 Other fluid overload; E66.9 Obesity, unspecified; Z68.42 Body mass index [BMI] 45.0-49.9, adult; Z53.20 Procedure and treatment not carried out because of patient's decision for unspecified reasons
CPT/HCPCS: 82948; 84132; 86706; 87340; 87641; G0257; G0378; J1644; J2997

== ENCOUNTER 2018-03-19 17:21 | Emergency (ER) | payer OTHER ==
[~2018-03-19] VITALS: Ht 129.5 cm; Wt 127.0 kg
[2018-03-19 19:59] LABS: HEMATOCRIT 38.9 % (38.0-50.0); HEMOGLOBIN 11.5 G/DL (12.5-16.6); MCH 27.4 PG (29.0-34.0); MCHC 29.6 G/DL (30.0-36.0); MCV 92.6 FL (86-99); PLATELET COUNT 258 K/uL (156-360); RBC DIS.WIDTH-CV 17.2 % (11.8-14.6); RBC DIS.WIDTH-SD 59.1 % (39-53); WHITE BLOOD COUNT 6.5 K/uL (4.1-10.2)
[2018-03-19 20:21] LABS: CHLORIDE 100 mEq/L (99-109); POTASSIUM 5.2 mEq/L (3.7-5.4); SODIUM 138 mEq/L (136-147)
[2018-03-19 20:22] LABS: GLUCOSE 163 mg/dL (70-99)
[2018-03-19 20:26] LABS: CREATININE 3.8 mg/dL (0.6-1.3); GFR ESTIMATE (CALCULATED) 18 mL/min/ (58.99-99999)
[2018-03-19 20:27] LABS: UREA NITROGEN (BUN) 15 mg/dL (9-23)
[2018-03-19 21:58] VITALS: BP 170/81
== END 2018-03-19 21:55 | disposition home or self-care (01) ==
LOC: EME 17:21
PROVIDERS: Emergency Medicine Emergency Medical Services
DX: H53.8 Other visual disturbances (principal); E11.65 Type 2 diabetes mellitus with hyperglycemia; H54.8 Legal blindness, as defined in USA; I12.0 Hypertensive chronic kidney disease with stage 5 chronic kidney disease or end stage renal disease; E11.22 Type 2 diabetes mellitus with diabetic chronic kidney disease; Z79.4 Long term (current) use of insulin; N18.6 End stage renal disease; Z99.2 Dependence on renal dialysis; I25.2 Old myocardial infarction; J44.9 Chronic obstructive pulmonary disease, unspecified; Z87.891 Personal history of nicotine dependence
CPT/HCPCS: 70450; 80048; 85027; 99281; 99285

== ENCOUNTER 2018-04-20 20:34 | Emergency (ER) | payer OTHER ==
[~2018-04-20] VITALS: Ht 185.4 cm; Wt 136.0 kg
[2018-04-20] MEDS ORDERED: NORCO 5/3251 TABLET PO (23:22)
[2018-04-20 23:40] VITALS: BP 197/123
== END 2018-04-20 23:41 | disposition home or self-care (01) ==
LOC: RME 20:34 → EME 20:34 → RME 23:41
DX: M79.604 Pain in right leg (principal); M79.605 Pain in left leg; I12.0 Hypertensive chronic kidney disease with stage 5 chronic kidney disease or end stage renal disease; E11.22 Type 2 diabetes mellitus with diabetic chronic kidney disease; Z79.4 Long term (current) use of insulin; N18.6 End stage renal disease; Z99.2 Dependence on renal dialysis; I50.9 Heart failure, unspecified; I25.2 Old myocardial infarction; Z89.512 Acquired absence of left leg below knee; Z89.511 Acquired absence of right leg below knee; Z87.891 Personal history of nicotine dependence
CPT/HCPCS: 93970; 99281; 99285

== ENCOUNTER 2018-05-01 22:37 | Emergency (ER) | payer OTHER ==
[~2018-05-01] VITALS: Ht 185.4 cm; Wt 127.2 kg
[2018-05-01 23:42] LABS: HEMATOCRIT 30.4 % (38.0-50.0); HEMOGLOBIN 9.2 G/DL (12.5-16.6); MCH 26.5 PG (29.0-34.0); MCHC 30.3 G/DL (30.0-36.0); MCV 87.6 FL (86-99); PLATELET COUNT 211 K/uL (156-360); RBC DIS.WIDTH-CV 14.5 % (11.8-14.6); RBC DIS.WIDTH-SD 46.5 % (39-53); RED BLOOD COUNT 3.47 M/uL (4.00-5.50); WHITE BLOOD COUNT 7.8 K/uL (4.1-10.2)
[2018-05-01 23:57] LABS: CHLORIDE 99 mEq/L (99-109); POTASSIUM 5.2 mEq/L (3.7-5.4); SODIUM 137 mEq/L (136-147)
[2018-05-01 23:59] LABS: GLUCOSE 169 mg/dL (70-99)
[2018-05-02 00:03] LABS: GFR ESTIMATE (CALCULATED) 17 mL/min/ (58.99-99999)
[2018-05-02 00:04] LABS: UREA NITROGEN (BUN) 44 mg/dL (9-23)
[2018-05-02 00:09] LABS: TROP-I INTERPRETATION NEGATIVE; TROPONIN-I 0.03 ng/mL (0.0-0.30)
[2018-05-02 01:14] VITALS: BP 195/94
== END 2018-05-02 01:14 | disposition home or self-care (01) ==
LOC: EME 22:37
PROVIDERS: Emergency Medicine
DX: R06.09 Other forms of dyspnea (principal); I13.2 Hypertensive heart and chronic kidney disease with heart failure and with stage 5 chronic kidney disease, or end stage renal disease; N18.6 End stage renal disease; I50.9 Heart failure, unspecified; R94.31 Abnormal electrocardiogram [ECG] [EKG]; Z99.2 Dependence on renal dialysis; Z87.891 Personal history of nicotine dependence; Z88.8 Allergy status to other drugs, medicaments and biological substances; Z88.1 Allergy status to other antibiotic agents; Z91.041 Radiographic dye allergy status; Z89.512 Acquired absence of left leg below knee; Z89.511 Acquired absence of right leg below knee
CPT/HCPCS: 71046; 80048; 83735; 84484; 85027; 93005; 94640; 99281; 99284

== ENCOUNTER 2018-05-04 22:07 | Emergency (ER) | payer OTHER ==
[~2018-05-04] VITALS: Ht 185.4 cm; Wt 130.0 kg
[2018-05-04 22:08] VITALS: BP 172/83
== END 2018-05-05 00:07 | disposition home or self-care (01) ==
LOC: EME 22:07
DX: R10.30 Lower abdominal pain, unspecified (principal); S31.30XA Unspecified open wound of scrotum and testes, initial encounter; E11.9 Type 2 diabetes mellitus without complications; I50.9 Heart failure, unspecified; G43.909 Migraine, unspecified, not intractable, without status migrainosus; R56.9 Unspecified convulsions; I25.2 Old myocardial infarction; Z79.4 Long term (current) use of insulin; Z87.891 Personal history of nicotine dependence; Z87.442 Personal history of urinary calculi; Z90.49 Acquired absence of other specified parts of digestive tract; Z89.612 Acquired absence of left leg above knee; Z89.611 Acquired absence of right leg above knee; Z88.1 Allergy status to other antibiotic agents; Z88.8 Allergy status to other drugs, medicaments and biological substances; Z91.041 Radiographic dye allergy status
CPT/HCPCS: 99281; 99284

== ENCOUNTER 2018-06-11 01:23 | Emergency (ER) | payer OTHER ==
[~2018-06-11] VITALS: Ht 129.5 cm; Wt 118.8 kg
[2018-06-11 02:50] VITALS: BP 148/63
== END 2018-06-11 02:52 | disposition home or self-care (01) ==
LOC: EME → EDBD 01:23 → EME 02:52
DX: L89.322 Pressure ulcer of left buttock, stage 2 (principal); L89.312 Pressure ulcer of right buttock, stage 2; Z89.612 Acquired absence of left leg above knee; Z89.611 Acquired absence of right leg above knee; E11.9 Type 2 diabetes mellitus without complications; I50.9 Heart failure, unspecified; I25.2 Old myocardial infarction; G43.909 Migraine, unspecified, not intractable, without status migrainosus; Z99.2 Dependence on renal dialysis; Z87.442 Personal history of urinary calculi; Z87.891 Personal history of nicotine dependence; Z90.49 Acquired absence of other specified parts of digestive tract; Z79.4 Long term (current) use of insulin; Z88.1 Allergy status to other antibiotic agents; Z88.8 Allergy status to other drugs, medicaments and biological substances; Z91.041 Radiographic dye allergy status
CPT/HCPCS: 99281; 99284; J3010

== ENCOUNTER 2018-06-14 05:01 | Emergency (ER) | payer OTHER ==
[~2018-06-14] VITALS: Ht 165.1 cm; Wt 128.2 kg
[2018-06-14 06:31] LABS: BASOPHIL (%) 0.5 % (0-1); EOSINOPHIL (%) 0.7 % (0-5); HEMATOCRIT 34.5 % (38.0-50.0); IMMATURE GRANULOCYTE (%) 0.2 % (0.0-0.7); LYMPHOCYTE (%) 11.7 % (15-42); LYMPHOCYTE COUNT 0.5 K/uL (1.0-2.8); MCH 25.5 PG (29.0-34.0); MONOCYTE (%) 8.7 % (3-12); MONOCYTE COUNT 0.4 K/uL (0-0.8); NEUTROPHIL (%) 78.2 % (45-76); NEUTROPHIL COUNT 3.2 K/uL (1.8-6.4); PLATELET COUNT 148 K/uL (156-360); RBC DIS.WIDTH-CV 16.7 % (11.8-14.6); RBC DIS.WIDTH-SD 53.8 % (39-53); RED BLOOD COUNT 3.92 M/uL (4.00-5.50)
[2018-06-14 06:37] LABS: INTER. NORMALIZED RATIO 1.1
[2018-06-14 07:06] LABS: CHLORIDE 100 MEQ/L (99-109); CREATININE 3.1 MG/DL (0.6-1.3); GFR ESTIMATE (CALCULATED) 22 mL/min/ (58.99-99999); GLUCOSE 152 mg/dL (70-99); POTASSIUM 3.9 MEQ/L (3.7-5.4); SODIUM 134 MEQ/L (136-147); UREA NITROGEN (BUN) 19 mg/dL (9-23)
[2018-06-14 07:07] LABS: TROP-I INTERPRETATION NEGATIVE; TROPONIN-I 0.03 ng/mL (0.0-0.30)
[2018-06-14 08:00] LABS: C DIFF TOXIN NEGATIVE (NEGATIVE)
[2018-06-14 09:41] LABS: TROP-I INTERPRETATION NEGATIVE; TROPONIN-I 0.02 ng/mL (0.0-0.30)
[2018-06-14 12:24] VITALS: BP 132/78
== END 2018-06-14 12:43 | disposition home or self-care (01) ==
LOC: EME → EDBD 05:01 → EME 12:43
PROVIDERS: Emergency Medicine
DX: R00.2 Palpitations (principal); R19.7 Diarrhea, unspecified; E11.22 Type 2 diabetes mellitus with diabetic chronic kidney disease; N18.6 End stage renal disease; Z79.4 Long term (current) use of insulin; I48.91 Unspecified atrial fibrillation; R91.8 Other nonspecific abnormal finding of lung field; Z99.2 Dependence on renal dialysis; I50.9 Heart failure, unspecified; I25.2 Old myocardial infarction; Z89.512 Acquired absence of left leg below knee; Z89.511 Acquired absence of right leg below knee; Z86.69 Personal history of other diseases of the nervous system and sense organs; Z88.1 Allergy status to other antibiotic agents; Z88.8 Allergy status to other drugs, medicaments and biological substances; Z87.891 Personal history of nicotine dependence; Z87.442 Personal history of urinary calculi
CPT/HCPCS: 71045; 80048; 84484; 85025; 85610; 85730; 87493; 93005; 99281; 99284

== ENCOUNTER 2018-06-20 23:08 | Emergency (ER) | payer OTHER ==
[~2018-06-20] VITALS: Ht 185.4 cm; Wt 113.6 kg
[2018-06-21 00:26] LABS: BASOPHIL (%) 1.1 % (0-1); BASOPHIL COUNT 0.1 K/uL (0-0.1); EOSINOPHIL (%) 5.8 % (0-5); EOSINOPHIL COUNT 0.3 K/uL (0-0.3); HEMATOCRIT 33.3 % (38.0-50.0); HEMOGLOBIN 9.6 G/DL (12.5-16.6); IMMATURE GRANULOCYTE (%) 0.2 % (0.0-0.7); LYMPHOCYTE (%) 15.2 % (15-42); LYMPHOCYTE COUNT 0.7 K/uL (1.0-2.8); MCH 25.3 PG (29.0-34.0); MCHC 28.8 G/DL (30.0-36.0); MCV 87.9 FL (86-99); MONOCYTE COUNT 0.4 K/uL (0-0.8); NEUTROPHIL (%) 68.7 % (45-76); NEUTROPHIL COUNT 3.1 K/uL (1.8-6.4); PLATELET COUNT 175 K/uL (156-360); RBC DIS.WIDTH-CV 17.1 % (11.8-14.6); RBC DIS.WIDTH-SD 54.8 % (39-53); RED BLOOD COUNT 3.79 M/uL (4.00-5.50); WHITE BLOOD COUNT 4.5 K/uL (4.1-10.2)
[2018-06-21 00:31] LABS: INTER. NORMALIZED RATIO 1.1
[2018-06-21 00:37] LABS: CHLORIDE 102 mEq/L (99-109); POTASSIUM 4.6 mEq/L (3.7-5.4); SODIUM 135 mEq/L (136-147)
[2018-06-21 00:38] LABS: GLUCOSE 151 mg/dL (70-99)
[2018-06-21 00:42] LABS: CREATININE 3.2 mg/dL (0.6-1.3); GFR ESTIMATE (CALCULATED) 21 mL/min/ (58.99-99999)
[2018-06-21 00:43] LABS: UREA NITROGEN (BUN) 13 mg/dL (9-23)
[2018-06-21 00:47] LABS: TROP-I INTERPRETATION NEGATIVE; TROPONIN-I < 0.01 ng/mL (0.0-0.30)
[2018-06-21 02:54] LABS: TROP-I INTERPRETATION NEGATIVE; TROPONIN-I < 0.01 ng/mL (0.0-0.30)
[2018-06-21 03:55] VITALS: BP 140/56
== END 2018-06-21 04:06 | disposition home or self-care (01) ==
LOC: EME → EDBD 23:08 → EME 06-21 04:06
PROVIDERS: Emergency Medicine
DX: R00.2 Palpitations (principal); E11.22 Type 2 diabetes mellitus with diabetic chronic kidney disease; N18.6 End stage renal disease; Z99.2 Dependence on renal dialysis; Z79.4 Long term (current) use of insulin; I48.91 Unspecified atrial fibrillation; I50.9 Heart failure, unspecified; G43.909 Migraine, unspecified, not intractable, without status migrainosus; R56.9 Unspecified convulsions; I25.2 Old myocardial infarction; Z87.442 Personal history of urinary calculi; Z90.49 Acquired absence of other specified parts of digestive tract; Z89.612 Acquired absence of left leg above knee; Z89.611 Acquired absence of right leg above knee; Z91.041 Radiographic dye allergy status; Z88.1 Allergy status to other antibiotic agents; Z88.8 Allergy status to other drugs, medicaments and biological substances
CPT/HCPCS: 71045; 73564; 80048; 84484; 85025; 85610; 85730; 93005; 99281; 99284